=== PATIENT | male | born 1950 | race Caucasian/White ===

== ENCOUNTER 2018-02-21 08:53 | Inpatient (IN) | payer OTHER ==
[~2018-02-21] VITALS: Ht 177.8 cm; Wt 95.0 kg
[~2018-02-21 08:53] MED LIST: ASPI325T4 PO; FLUT0.05 NAS; HYDR-392 PO; NITR0.4S29 SL; RANI150C11 PO; TIZA4CAP PO
[2018-02-21] MEDS ORDERED: ANGIOMAX 250 MG VIAL IV ONE (10:11)
[2018-02-21] MEDS ORDERED: VERAPAMIL 2.5MG/ML INJ 2ML VIAL IV ONE (10:11)
[2018-02-21] MEDS ORDERED: methylPREDNISolone SOD SUCC 125 MG/2 ML VL ONE (10:11)
[2018-02-21] MEDS ORDERED: diphenhdrAMINE HCL 50 MG/1 ML VL ONE (10:11)
[2018-02-21] MEDS ORDERED: fentaNYL CITRATE 100 MCG/2 ML VL ONE (10:12)
[2018-02-21] MEDS ORDERED: SODIUM CHL 0.9% 50 ML ONE (10:12)
[2018-02-21] MEDS ORDERED: MIDAZOLAM HCL 1MG/1ML-2 ML VIAL ONE (10:12)
[2018-02-21] MEDS ORDERED: IODIXANOL 320MG/ML 100ML BTL IV ONE (10:19)
[2018-02-21] MEDS ORDERED: LIDOCAINE 2% (LOCAL ANESTH.) PF 5ml SDV ONE (10:19)
[2018-02-21] MEDS ORDERED: ATROPINE SULF 1 MG/10ml SYR ONE (10:47)
[2018-02-21] MEDS ORDERED: EPINEPHrine HCL 1 MG/10 ML SYRG ONE (10:47)
[2018-02-21] MEDS ORDERED: LIDOCAINE 2%HCL (LOCAL ANESTH.) INJ 10ml MDV ONE (10:52)
[2018-02-21] MEDS ORDERED: ASPirin 325 MG TAB ONE (11:06)
[2018-02-21] MEDS ORDERED: TICAGRELOR 90 MG TAB ONE (11:06)
[2018-02-21] MEDS ORDERED: ACETAMINOPHEN 500 MG TAB PO PRN (12:30)
[2018-02-21] MEDS ORDERED: MORPHINE SULF INJ 2 MG/ML SYRINGE 1ML IV PRN (12:30)
[2018-02-21] MEDS ORDERED: ONDANSETRON HCL 4 MG/2 ML VIAL IV PRN (12:30)
[2018-02-21] MEDS ORDERED: NITROGLYCERIN 0.4 MG SL TAB SL PRN (12:30)
[2018-02-21] MEDS: FLUTICASONE PROP NASAL SPR 0.05 % (50MCG) 16GM EACHNOSTRI SCH (12:45)
[2018-02-21] MEDS ORDERED: HYDROcodone-ACET 7.5/325MG TAB PO PRN (12:45)
[2018-02-21] MEDS: SODIUM CHLOR 0.9% PF (SALINE LOCK) 10ML VIAL/SYR IV SCH ×2 (14:00→22:00)
[2018-02-21 16:24] VITALS: BP 150/83
[2018-02-21 16:44] VITALS: BP 150/83
[2018-02-21] MEDS: SODIUM CHLORIDE 0.9% 1,000 ML IV SCH (18:00)
[2018-02-21 21:56] VITALS: BP 109/64
[2018-02-21] MEDS ORDERED: CLOPIDOGREL 300 MG TAB PO ONE (22:00)
[2018-02-21] MEDS: FAMOTIDINE 20 MG TAB PO SCH (22:35)
[2018-02-22] MEDS: SODIUM CHLORIDE 0.9% 1,000 ML IV SCH ×2 (04:00→14:00)
[2018-02-22 04:43] VITALS: BP 124/67
[2018-02-22] MEDS: SODIUM CHLOR 0.9% PF (SALINE LOCK) 10ML VIAL/SYR IV SCH ×2 (06:00→15:16)
[2018-02-22 07:53] VITALS: BP 127/65
[2018-02-22] MEDS: FLUTICASONE PROP NASAL SPR 0.05 % (50MCG) 16GM EACHNOSTRI SCH (09:53)
[2018-02-22] MEDS ORDERED: ASPirin 325 MG TAB PO SCH (10:00)
[2018-02-22] MEDS: FAMOTIDINE 20 MG TAB PO SCH (10:00)
[2018-02-22] MEDS ORDERED: ASPirin 81 mg TAB PO SCH (10:00)
[2018-02-22] MEDS ORDERED: CLOPIDOGREL BISULFATE 75 MG TAB PO SCH (10:00)
[2018-02-22] MEDS ORDERED: ATOR20TA50 PO (10:27)
[2018-02-22] MEDS ORDERED: CLOP75TA28 PO (10:27)
[2018-02-22 12:44] VITALS: BP 131/62
== END 2018-02-22 15:01 | disposition home or self-care (01) | DRG 247 ==
LOC: EDSEX → CATH 08:53 → TELE-EAST 08:54
PROVIDERS: ADMIT Internal Medicine; ATTEND Internal Medicine
PROC: 027035Z Dilation of Coronary Artery, One Artery with Two Drug-eluting Intraluminal Devices, Percutaneous Approach (ICD-10-PCS; principal; 2018-02-21)
PROC: 02C03ZZ Extirpation of Matter from Coronary Artery, One Artery, Percutaneous Approach (ICD-10-PCS; 2018-02-21)
PROC: 4A023N7 Measurement of Cardiac Sampling and Pressure, Left Heart, Percutaneous Approach (ICD-10-PCS; 2018-02-21)
PROC: B2111ZZ Fluoroscopy of Multiple Coronary Arteries using Low Osmolar Contrast (ICD-10-PCS; 2018-02-21)
DX: I25.10 Atherosclerotic heart disease of native coronary artery without angina pectoris (principal); Z91.030 Bee allergy status; Z91.041 Radiographic dye allergy status; Z82.49 Family history of ischemic heart disease and other diseases of the circulatory system; K21.9 Gastro-esophageal reflux disease without esophagitis; F17.200 Nicotine dependence, unspecified, uncomplicated
CPT/HCPCS: 92924; 93005; 93458; 99152; A6257; C1751; C1874; J2001; J2250; Q9967

== ENCOUNTER 2021-01-04 07:28 | Day surgery (SDC) | payer OTHER ==
[~2021-01-04] VITALS: Ht 177.8 cm; Wt 90.7 kg
[~2021-01-04 07:28] MED LIST changes: +ASPI1TAB19 PO; -ASPI325T4 PO; +ATOR20TA PO; +CLOP75TA28 PO; -FLUT0.05 NAS; +FLUT50SP28
[2021-01-04] MEDS ORDERED: IODIXANOL 320MG/ML 100ML BTL IV ONE ×2 (08:37→09:47)
[2021-01-04] MEDS ORDERED: LIDOCAINE 2%HCL (LOCAL ANESTH.) INJ 20ML MDV ONE ×2 (08:38→09:46)
[2021-01-04] MEDS ORDERED: ANGIOMAX 250 MG VIAL IV ONE (09:54)
[2021-01-04] MEDS ORDERED: MIDAZOLAM HCL 1MG/1ML-2 ML VIAL ONE (09:55)
[2021-01-04] MEDS ORDERED: SODIUM CHL 0.9% 50 ML ONE (09:55)
[2021-01-04] MEDS ORDERED: HEPARIN SODIUM (PORCINE) 5000 UNITS/ML 1ML VIAL ONE (09:55)
[2021-01-04] MEDS ORDERED: fentaNYL CITRATE 100 MCG/2 ML VL ONE (09:55)
[2021-01-04] MEDS ORDERED: VERAPAMIL 2.5MG/ML INJ 2ML VIAL IV ONE (09:55)
[2021-01-04] MEDS ORDERED: methylPREDNISolone SOD SUCC 125 MG/2 ML VL ONE (10:01)
[2021-01-04] MEDS ORDERED: diphenhdrAMINE HCL 50 MG/1 ML VL ONE (10:01)
[2021-01-04] MEDS ORDERED: FAMOTIDINE (10MG/ML) 2ML VL IV ONE (10:01)
[2021-01-04] MEDS ORDERED: CLOPIDOGREL 300 MG TAB ONE (10:31)
[2021-01-04] MEDS ORDERED: ACETAMINOPHEN 500 MG TAB PO PRN (10:45)
[2021-01-04] MEDS ORDERED: ONDANSETRON HCL 4 MG/2 ML VIAL IV PRN (10:45)
[2021-01-04] MEDS ORDERED: HYDROcodone-ACET 5/325MG TAB PO PRN (10:45)
== END 2021-01-04 15:10 | disposition home or self-care (01) ==
LOC: CATH 07:28
PROVIDERS: ATTEND Internal Medicine
DX: R94.39 Abnormal result of other cardiovascular function study (principal); I25.118 Atherosclerotic heart disease of native coronary artery with other forms of angina pectoris; Z20.822 Contact with and (suspected) exposure to COVID-19; Z91.041 Radiographic dye allergy status; Z98.890 Other specified postprocedural states; Z79.899 Other long term (current) drug therapy
CPT/HCPCS: 93005; 93454; C1769; C1874; C1887; C1894; C9600; J0583; J1200; J1644; J2250; J2930; J3010; J3490; Q9967; U0003; 99152; 99153

== ENCOUNTER 2023-01-21 00:13 | Emergency (ER) | payer OTHER ==
[~2023-01-21] VITALS: Ht 177.8 cm; Wt 97.5 kg
[2023-01-21 01:20] VITALS: BP 153/62
[2023-01-21 02:15] LABS: Albumin 4.2 g/dL (3.4-5.0); Basophils # (auto) 0.1 10 ^3/uL (0-0.2); Basophils % (auto) 0.7 % (0.0-2.0); Calcium 9.7 mg/dL (8.5-10.1); Eosinophils # (auto) 0.1 10 ^3/uL (0-0.8); Eosinophils % (auto) 1.3 % (0.0-7.0); Hematocrit 44.8 % (41.0-53.0); Hemoglobin 15.3 g/dL (13.5-17.5); Lymphocytes # (auto) 1.3 10 ^3/uL (0.4-5.4); Lymphocytes % (auto) 13.2 % (10.0-50.0); Mean Corpuscular Hgb Conc. 34.1 g/dL (32.0-36.0); Mean Corpuscular Volume 85.2 fL (80.0-100.0); Monocytes # (auto) 0.7 10 ^3/uL (0-1.3); Monocytes % (auto) 7.1 % (0.0-12.0); Neutrophils # (auto) 7.9 10 ^3/uL (1.6-8.6); Neutrophils % (auto) 77.7 % (37.0-80.0); Potassium 4.4 mmol/L (3.5-5.1); Red Blood Cells 5.26 10^6/uL (4.5-5.90); Red Cell Distribution Width 13.7 % (11.8-14.3); White Blood Cell 10.2 10^3/uL (4.4-10.8)
[2023-01-21 02:17] LABS: BUN/Creatinine Ratio 16.1 (10.0-20.0)
[2023-01-21 02:19] LABS: Bilirubin, Total 0.6 mg/dL (0.2-1.0); Total Protein 7.3 g/dL (6.4-8.2)
[2023-01-21 02:20] LABS: Urine Bacteria FEW /hpf (None Seen); Urine Blood 3+ /uL (Negative); Urine Mucus FEW (None Seen); Urine WBC 4 /hpf (0 - 3)
== END 2023-01-21 03:00 | disposition left against medical advice (07) ==
LOC: ER 00:13
DX: R10.9 Unspecified abdominal pain (principal); Z53.21 Procedure and treatment not carried out due to patient leaving prior to being seen by health care provider
CPT/HCPCS: 36415; 80053; 81001; 85025

== ENCOUNTER 2024-09-16 06:48 | Inpatient (IN) | payer OTHER ==
[~2024-09-16] VITALS: Ht 175.3 cm; Wt 88.6 kg
[~2024-09-16 06:48] MED LIST changes: +ACETAMINOPHEN 325 MG TAB PO ONE
--- NOTE | 2024-09-16 06:57 | ED.PDOC ---
History of Present Illness HPI Comments 74-year-old male brought in by EMS presents with a chief complaint of syncope and headache. Patient reports that he bent down to place cat food on the floor, stood up, got dizzy, then woke up on the floor. Patient mentions that he has felt dizzy like this in the past, but has never fainted before. Patient is now complaining of a headache to the occipital portion of his head. Patient is alert and oriented x 4 at this time. Patient is on Plavix and ASA. No other symptoms or modifying factors present at this time. Time Seen by MD: 06:51 Reviewed Notes: Medications, Allergies Allergies: Coded Allergies: Iodine (Verified Allergy, Intermediate, HIVES, 01/01/21) Home Meds Reported Medications Clopidogrel Bisulfate (Plavix) 75 Mg Tab, 1 TAB PO QAM for CAD 01/01/21 Atorvastatin Calcium (Lipitor) 20 Mg Tab, 1 TAB PO QPM for HIGH CHOLESTEROL 01/01/21 Fluticasone Propionate (Nasal) (Allergy Relief) 50 Mcg/Act Spr, 1 SPRAY NA DAILY PRN for ALLERGIES 01/01/21 Aspirin (Aspirin) 81 Mg Tab, 1 TAB PO QAM for CAD 01/01/21 Tizanidine Hydrochloride (Zanaflex) 4 Mg Cap, 1 CAP PO DAILY PRN for FOR MUSCLE SPASM 01/17/18 Hydrocodone-Acetaminophen ([place] 7.5-325 mg) 1 Tab Tab, 1 TAB PO BID PRN for PAIN SCALE 7 THRU 10 01/17/18 Nitroglycerin (NTROSTAT SUBLINGUAL) 0.4 Mg Sl, 1 TAB SL PRN PRN for FOR CHEST PAIN *MAY REPEAT EVERY 5 MINUTES X 3 TOTAL IF NO RELIEF, INITIATE ANALGESIC THERAPY. NOTIFY PHYSICIAN *Do not crush. 01/17/18 Ranitidine Hcl (Ranitidine Hcl) 150 Mg Cap, 1 CAP PO BID PRN for GERD 01/17/18 Information Source: Patient Mode of Arrival: EMS Severity: Moderate Timing: Minutes Duration: Since onset Prehospital treatment: None Past Medical History PAST MEDICAL HISTORY: CAD Surgical History: PTCA Family History Family History: Reviewed,noncontributory to illness Social History Smoker: Non-Smoker Alcohol: Denies ETOH Use Drugs: Denies Drug Use Lives In: Home Constitutional: denies: chills, diaphoresis, fatigue, fever, malaise, sweats, weakness, others EENTM: denies: blurred vision, double vision, ear bleeding, ear discharge, ear drainage, ear pain, ear ringing, eye pain, eye redness, hearing loss, mouth pain, mouth swelling, nasal discharge, nose bleeding, nose congestion, nose pain, photophobia, tearing, throat pain, throat swelling, voice changes, others Respiratory: denies: cough, hemoptysis, orthopnea, SOB at rest, shortness of breath, SOB with excertion, stridor, wheezing, others Cardiovascular: reports: syncope; denies: chest pain, dizzy spells, diaphoresis, Dyspnea on exertion, edema, irregular heart beat, left arm pain, lightheadedness, palpitations, PND, others Gastrointestinal: denies: abdomen distended, abdominal pain, blood streaked bowels, constipated, diarrhea, dysphagia, difficulty swallowing, hematemesis, melena, nausea, poor appetite, poor fluid intake, rectal bleeding, rectal pain, vomiting, others Genitourinary: denies: burning, dysuria, flank pain, frequency, hematuria, incontinence, penile discharge, penile sore, pain, testicle pain, testicle swelling, urgency, others Neurological: reports: headache; denies: dizziness, fainting, left sided numbness, left sided weakness, numbness, paresthesia, pre-existing deficit, right sided numbness, right sided weakness, seizure, speech problems, tingling, tremors, weakness, others Musculoskeletal: denies: back pain, gout, joint pain, joint swelling, muscle pain, muscle stiffness, neck pain, others Integumetry: denies: bruises, change in color, change in hair/nails, dryness, laceration, lesions, lumps, rash, wounds, others Allergic/Immunocompromised: denies: Difficulty Healing, Frequent Infections, Hives, Itching, others Hematologic/Lymphatic: denies: anemia, blood clots, easy bleeding, easy bruising, swollen glands, others Endocrine: denies: excessive hunger, excessive sweating, excessive thirst, excessive urination, flushing, intolerance to cold, intolerance to heat, unexplained weight gain, unexplained weight loss, others Psychiatric: denies: anxiety, bipolar disorder, depression, hopeless, panic disorder, schizophrenia, sleepless, suicidal, others All Other Systems: Reviewed and Negative Physical Exam General Appearance: No Apparent Distress, Normal HEENT: NOT DONE Neck: NOT DONE Respiratory: Chest Non-Tender, Lungs Clear, No Accessory Muscle Use, No Respiratory Distress, Normal Breath Sounds Cardiovascular: No Edema, No JVD, No Murmur, No Gallop, Normal Peripheral Pulses, Regular Rate/Rhythm Breast Exam: Deferred Gastrointestinal: No Organomegaly, Non Tender, No Pulsatile Mass, Normal Bowel Sounds, Soft Genitalia: Deferred Pelvic: Deferred Rectal: Deferred Extremities: No calf tenderness, Normal capillary refill, Normal inspection, Normal range of motion, Non-tender, No pedal edema Neurologic: Alert, No Motor Deficits, Normal Affect, Normal Mood, No Sensory Deficits Cerebellar Function: NOT DONE Reflexes: NOT DONE Skin: Dry, Normal Color, Warm Lymphatic: NOT DONE Was a procedure done? Was a procedure done?: No Differential Dx Considerations may include: ACS, cardiac arrhythmia, viral syndrome, electrolyte abnormality, infectious etiology X-Ray, Labs, Meds, VS Vital Signs Date Time Temp Pulse Resp B/P (MAP) Pulse Ox O2 Delivery O2 Flow Rate FiO2 09/16/24 09:55 51 17 132/70 (90) 96 09/16/24 07:16 97.6 51 17 128/67 (87) 96 97.6 09/16/24 07:16 51 17 96 Room Air* 0 21 09/16/24 06:50 97.8 52 16 141/79 (99) 96 09/16/24 06:48 51 Lab Test 09/16/24 08:06 09/16/24 07:21 09/16/24 07:07 09/16/24 07:04 Range/Units Troponin I High Sensitivity 18 8 </=54 ng/L POC Glucose 111 H 125 H 70-106 mg/dl White Blood Count 6.1 4.4-10.8 10^3/uL Red Blood Count 5.30 4.5-5.90 10^6/uL Hemoglobin 15.2 13.5-17.5 g/dL Hematocrit 45.4 41.0-53.0 % Mean Corpuscular Volume 85.7 80.0-100.0 fL Mean Corpuscular Hemoglobin 28.7 28.0-32.0 pg Mean Corpuscular Hemoglobin Concent 33.4 32.0-36.0 g/dL Red Cell Distribution Width 14.1 11.8-14.3 % Platelet Count 162 140-450 10^3/uL Mean Platelet Volume 7.3 6.9-10.8 fL Neutrophils (%) (Auto) 67.3 37.0-80.0 % Lymphocytes (%) (Auto) 22.0 10.0-50.0 % Monocytes (%) (Auto) 7.2 0.0-12.0 % Eosinophils (%) (Auto) 2.3 0.0-7.0 % Basophils (%) (Auto) 1.2 0.0-2.0 % Neutrophils # (Auto) 4.1 1.6-8.6 10 ^3/uL Lymphocytes # (Auto) 1.3 0.4-5.4 10 ^3/uL Monocytes # (Auto) 0.4 0-1.3 10 ^3/uL Eosinophils # (Auto) 0.1 0-0.8 10 ^3/uL Basophils # (Auto) 0.1 0-0.2 10 ^3/uL Nucleated Red Blood Cells 0.1 % Sodium Level 138 136-145 mmol/L Potassium Level 4.3 3.5-5.1 mmol/L Chloride Level 106 98-107 mmol/L Carbon Dioxide Level 21 20-31 mmol/L Anion Gap 11 5-15 Blood Urea Nitrogen 16 9-23 mg/dL Creatinine 1.20 0.700-1.30 mg/dL Glomerular Filtration Rate Calc 64 >90 mL/min BUN/Creatinine Ratio 13.3 10.0-20.0 Serum Glucose 123 H 74-106 mg/dL Calcium Level 10.1 8.7-10.4 mg/dL B-Type Natriuretic Peptide 56.54 0-100 pg/mL Test 09/16/24 06:53 Range/Units Urine Color Light-yellow Yellow Urine Clarity Clear Clear Urine pH 5.0 5.0-9.0 Urine Specific [place] 1.019 1.001-1.035 Urine Protein Negative Negative Urine Ketones Negative Negative Urine Blood Negative Negative /uL Urine Nitrite Negative Negative Urine Bilirubin Negative Negative Urine Urobilinogen Normal Negative mg/dL Urine Leukocyte Esterase Negative Negative /uL Urine RBC 1 0 - 3 /hpf Urine Microscopic WBC 1 0-3 /HPF Urine Squamous Epithelial Cells None seen <5 /hpf Urine Bacteria None seen None Seen /hpf Urine Glucose Normal Normal mg/dL Current Medications Medications (Trade) Dose Ordered Sig/Fidelia Route Start Time Stop Time Status Last Admin Acetaminophen (Tylenol Tablet) 650 mg ONCE ONCE PO 09/16/24 07:30 09/16/24 07:31 DC 09/16/24 07:35 Time of 1ST Reevaluation: 07:21 Reevaluation 1ST: Unchanged Patient Education/Counseling: Diagnosis, Treatment, Prognosis Family Education/Counseling: No Family Present Departure 1 Departure Time of Disposition: 10:12 (Patient presented with syncope today and should be admitted. Data: 1. I ordered and reviewed the result of at least 3 labs including a CBC, BMP, and troponin. 2. I independently interpreted the following tests: EKG which shows a sinus bradycardia and a chest x-ray which shows pulmonary vascular congestion and a CT head which shows benign brain.Risk:This patient has a high risk of morbidity due to further diagnostic testing or treatment and may suffer from an acute cardiac, neurologic, or infectious disorder. Rationale: Patient should be admitted to the hospital for further management.) Impression: Primary Impression: Syncope and collapse Additional Impression: Symptomatic bradycardia Disposition: 09 ADMITTED INPATIENT Admit to: Med Surg Condition: Serious Critical Care Note Critical Care Time?: No Stability Stability form required: No I personally scribed for JACKLYN GAMBINO MD ([email or web address]) on 09/16/24 at 06:57. Electronically submitted by Quan Aguayo ([email or web address]). JACKLYN GAMBINO MD Sep 16, 2024 06:57
[2024-09-16 07:16] VITALS: PULSE 51; RESP 17; O2SAT 96
[2024-09-16] MEDS: ACETAMINOPHEN 325 MG TAB PO ONE (07:35)
[2024-09-16 07:36] LABS: Basophils # (auto) 0.1 10 ^3/uL (0-0.2); Basophils % (auto) 1.2 % (0.0-2.0); Eosinophils # (auto) 0.1 10 ^3/uL (0-0.8); Eosinophils % (auto) 2.3 % (0.0-7.0); Hematocrit 45.4 % (41.0-53.0); Hemoglobin 15.2 g/dL (13.5-17.5); Lymphocytes # (auto) 1.3 10 ^3/uL (0.4-5.4); Mean Corpuscular Hemoglobin 28.7 pg (28.0-32.0); Mean Corpuscular Hgb Conc. 33.4 g/dL (32.0-36.0); Mean Corpuscular Volume 85.7 fL (80.0-100.0); Monocytes # (auto) 0.4 10 ^3/uL (0-1.3); Monocytes % (auto) 7.2 % (0.0-12.0); Neutrophils # (auto) 4.1 10 ^3/uL (1.6-8.6); Neutrophils % (auto) 67.3 % (37.0-80.0); Nucleated Red Blood Cells % 0.1 %; Platelet Count (auto) 162 10^3/uL (140-450); Red Cell Distribution Width 14.1 % (11.8-14.3); White Blood Cell 6.1 10^3/uL (4.4-10.8)
--- NOTE | 2024-09-16 07:43 | DVH ---
CHEST RADIOGRAPH Indication: Syncope Technique: Single frontal view of the chest was obtained Comparison: None FINDINGS: Lines and Tubes: None Lungs: There is a density overlying the left chest. Mild interstitial prominence. No focal consolidat ion. Pleura: No effusion. No pneumothorax. Cardiomediastinal contours: Unremarkable Bones: No acute osseous abnormality. IMPRESSION: 1. Density overlying the left chest presumably external to the patient. 2. Mild interstitial prominence compatible with pulmonary congestion.
--- NOTE | 2024-09-16 07:49 | DVH ---
CLINICAL INFORMATION: 74 years old, Male; syncope. TECHNIQUE: Axial imaging was obtained through the brain without contrast. Coronal and sagittal reform atted images were obtained, reviewed, and stored. Images were reviewed in brain and bone windows. Al l CT scans at this medical facility are performed using dose modulation techniques as appropriate to a performed exam including the following: Automated exposure control was utilized; adjustment of the MA and/or KV according to patient size; and use of iterative reconstruction technique. CTDIvol = 57.6 3 mGy DLP = 1135.76 mGy-cm COMPARISON: None FINDINGS: There is no acute intracranial hemorrhage. No mass effect or midline shift. Scattered areas of hypoattenuation are seen in the periventricular and subcortical white matter, which are nonspecif ic but most likely sequelae of small vessel ischemic disease. The ventricles and sulci are within nor mal limits in size for age. Basal cisterns are patent. The calvarium is unremarkable. Paranasal sinu ses and mastoid air cells are clear. IMPRESSION: No CT evidence of acute intracranial abnormality.
[2024-09-16 08:28] LABS: Chloride 106 mmol/L (98-107); Potassium 4.3 mmol/L (3.5-5.1); Sodium 138 mmol/L (136-145)
[2024-09-16 08:29] LABS: Anion Gap 11 (5-15); Carbon Dioxide 21 mmol/L (20-31)
[2024-09-16 08:30] LABS: Calcium 10.1 mg/dL (8.7-10.4)
[2024-09-16 08:35] LABS: BUN/Creatinine Ratio 13.3 (10.0-20.0); Blood Urea Nitrogen 16 mg/dL (9-23); Glucose 123 mg/dL (74-106)
[2024-09-16 08:42] LABS: Urine Bacteria None Seen /hpf (None Seen)
[2024-09-16 09:10] LABS: Urine Blood Negative /uL (Negative); Urine Clarity Clear (Clear); Urine Color Light-Yellow (Yellow); Urine Protein, UAD Negative (Negative); Urine Specific Gravity 1.019 (1.001-1.035); Urine Squamous Epithelial Cell None Seen /hpf (<5); Urine Urobilinogen Normal (Negative); Urine WBC 1 /HPF (0-3)
[2024-09-16] MEDS ORDERED: HYDROcodone-ACET 5/325MG TAB PO PRN (11:15)
[2024-09-16] MEDS ORDERED: NITROGLYCERIN 0.4 MG SL TAB SL PRN (11:15)
[2024-09-16] MEDS ORDERED: MORPHINE SULFATE INJ 2 MG/ml SYRG IV PRN (11:15)
[2024-09-16] MEDS ORDERED: ONDANSETRON HCL 4 MG/2 ML VIAL IV PRN (11:15)
[2024-09-16] MEDS ORDERED: CYCLOBENZAPRINE HCL 10 MG TAB PO PRN (11:15)
[2024-09-16] MEDS ORDERED: FLUTICASONE PROP NASAL SPR 0.05 % (50MCG) 16GM PRN (11:15)
--- NOTE | 2024-09-16 12:24 | DVH ---
PROCEDURE: MRI BRAIN HEAD WO CONTRAST INDICATION: syncope EXAM DATE: 09/16/2024 11:51 AM COMPARISON: None TECHNIQUE: MRI of the brain without intravenous contrast. FINDINGS: Diffusion weighted images of the brain demonstrate no evidence of acute infarction. There is no evidence of acute intracranial hemorrhage, extra-axial collection, mass effect, midline s hift, herniation or hydrocephalus. The ventricles, sulci and cisterns appear age appropriate. Few punctate T2 bright foci in the deep white matter. There are no signal abnormalities on the susceptibility weighted sequences. The major vascular flow voids are present. The visualized paranasal sinuses and mastoid air cells are clear. The surrounding soft tissues and o sseous structures are unremarkable. IMPRESSION: 1. No evidence of acute infarction, intracranial hemorrhage, mass effect or hydrocephalus. Few puncta te T2 bright foci in the deep white matter are nonspecific but likely related to chronic microvascula r ischemic disease. HS:Y
[2024-09-16 12:40] VITALS: PULSE 54; RESP 18; O2SAT 96
--- NOTE | 2024-09-16 12:47 | DVHHP2 ---
History of Present Illness Reason for Visit: Dizziness with syncopal episode History of Present Illness 74-year-old male brought in by EMS presents with a chief complaint of syncope and headache. Patient reports that he bent down to place cat food on the floor, stood up, got dizzy, then woke up on the floor. Patient mentions that he has felt dizzy like this in the past, but has never fainted before. Patient is now complaining of a headache to the occipital portion of his head. Patient is alert and oriented x 4 at this time. Patient is on Plavix and ASA. No other symptoms or modifying factors present at this time. Patient noted to be bradycardic heart rate in the 50s. Patient apparently had a similar episode few years back. Patient apparently had a coronary artery disease with stent placement four years ago. He is taking dual antiplatelet therapy. Otherwise he denies any chest pain shortness for breath. No fevers chills or sweats. No recent travel. Other review of systems reviewed normal. Past Medical History Coronary artery disease Past Surgical History Alert coronary artery stent placement in 2020 Family History: Hyperlipidemia, Hypertension Smoke: No ALCOHOL: rare Lives: with Family Review of Systems Review of Systems Denies any vertigo. Other review of systems reviewed normal besides mentioned in HPI. Allergies: Coded Allergies: Iodine (Verified Allergy, Intermediate, HIVES, 01/01/21) Medications Current Medications Medications Dose Ordered Sig/Fidelia Route Start Time Stop Time Status Last Admin Dose Admin Aspirin 81 mg QAM PO 09/17/24 07:00 UNV Atorvastatin Calcium 20 mg QPM PO 09/16/24 18:00 UNV Clopidogrel Bisulfate 75 mg QAM PO 09/17/24 07:00 UNV Fluticasone Propionate 1 mcg DAILY PRN NA 09/16/24 11:15 UNV Nitroglycerin 0.4 mg Q5MINP PRN SL 09/16/24 11:15 UNV Morphine Sulfate 2 mg Q30M PRN IV 09/16/24 11:15 UNV Acetaminophen/ Hydrocodone Bitart 1 tab Q4HPRN PRN PO 09/16/24 11:15 UNV Ondansetron HCl 4 mg Q6HPRN PRN IV 09/16/24 11:15 UNV Famotidine 20 mg DAILY PO 09/17/24 10:00 UNV Cyclobenzaprine HCl 5 mg Q8HPRN PRN PO 09/16/24 11:15 UNV Exam Vital Signs Vital Signs Date Time Temp Pulse Resp B/P (MAP) Pulse Ox O2 Delivery O2 Flow Rate FiO2 09/16/24 11:42 51 17 124/58 (80) 98 09/16/24 07:16 97.6 97.6 09/16/24 07:16 Room Air* 0 21 Exam Elderly gentleman comfortable in wheelchair sitting without acute distress. HEENT pupils equal round react to light. Neck supple. Normocephalic atraumatic head. Unable to palpate any thyromegaly. Heart sinus bradycardia S1 plus S2 wi thout any murmurs or gallops. Lungs fair air movement chest tube will expansion no rales wheezes. Abdomen is obese soft nontender positive bowel sounds. Extremities no edema positive distal pedal pulses. Neurologic no focal neurological deficits. Labs/Xrays Labs Test 09/16/24 10:10 09/16/24 07:21 09/16/24 07:04 09/16/24 06:53 Range/Units Troponin I High Sensitivity 42 </=54 ng/L POC Glucose 111 H 70-106 mg/dl White Blood Count 6.1 4.4-10.8 10^3/uL Red Blood Count 5.30 4.5-5.90 10^6/uL Hemoglobin 15.2 13.5-17.5 g/dL Hematocrit 45.4 41.0-53.0 % Mean Corpuscular Volume 85.7 80.0-100.0 fL Mean Corpuscular Hemoglobin 28.7 28.0-32.0 pg Mean Corpuscular Hemoglobin Concent 33.4 32.0-36.0 g/dL Red Cell Distribution Width 14.1 11.8-14.3 % Platelet Count 162 140-450 10^3/uL Mean Platelet Volume 7.3 6.9-10.8 fL Neutrophils (%) (Auto) 67.3 37.0-80.0 % Lymphocytes (%) (Auto) 22.0 10.0-50.0 % Monocytes (%) (Auto) 7.2 0.0-12.0 % Eosinophils (%) (Auto) 2.3 0.0-7.0 % Basophils (%) (Auto) 1.2 0.0-2.0 % Neutrophils # (Auto) 4.1 1.6-8.6 10 ^3/uL Lymphocytes # (Auto) 1.3 0.4-5.4 10 ^3/uL Monocytes # (Auto) 0.4 0-1.3 10 ^3/uL Eosinophils # (Auto) 0.1 0-0.8 10 ^3/uL Basophils # (Auto) 0.1 0-0.2 10 ^3/uL Nucleated Red Blood Cells 0.1 % Sodium Level 138 136-145 mmol/L Potassium Level 4.3 3.5-5.1 mmol/L Chloride Level 106 98-107 mmol/L Carbon Dioxide Level 21 20-31 mmol/L Anion Gap 11 5-15 Blood Urea Nitrogen 16 9-23 mg/dL Creatinine 1.20 0.700-1.30 mg/dL Glomerular Filtration Rate Calc 64 >90 mL/min BUN/Creatinine Ratio 13.3 10.0-20.0 Serum Glucose 123 H 74-106 mg/dL Calcium Level 10.1 8.7-10.4 mg/dL B-Type Natriuretic Peptide 56.54 0-100 pg/mL Urine Color Light-yellow Yellow Urine Clarity Clear Clear Urine pH 5.0 5.0-9.0 Urine Specific [place] 1.019 1.001-1.035 Urine Protein Negative Negative Urine Ketones Negative Negative Urine Blood Negative Negative /uL Urine Nitrite Negative Negative Urine Bilirubin Negative Negative Urine Urobilinogen Normal Negative mg/dL Urine Leukocyte Esterase Negative Negative /uL Urine RBC 1 0 - 3 /hpf Urine Microscopic WBC 1 0-3 /HPF Urine Squamous Epithelial Cells None seen <5 /hpf Urine Bacteria None seen None Seen /hpf Urine Glucose Normal Normal mg/dL Assessment/Plan Assessment/Plan History consistent with possible orthostatic hypotension. We will bring him to the hospital to rule out other neuro cardiogenic causes. Telemetry evaluation. 2D echocardiogram. Dr. Bruno his cardiology consultation. Serial troponins. Orthostatic blood pressures. MRI of the brain to rule out any TIA/stroke. Continue his home medications. Supportive care and treatment. Otherwise further clinical management per clinical course and pending evaluations studies. Discussed with the patient regarding his care plan. Plan discussed with: Patient My Orders Orders - JARAD FRIEDMAN MD Procedure Category Date Status Time Aspirin Enteric PHA 09/17/24 Logged Coated Tablet 07:00 Atorvastatin (Lipitor) PHA 09/16/24 Logged 18:00 Clopidogrel Bisulfate PHA 09/17/24 Logged (Plavix) 07:00 Fluticasone Nasal PHA 09/16/24 Logged [place] (Flonase R[place]) 11:15 Admit ADMIT 09/16/24 Transmitted 11:09 Nitroglycerin PHA 09/16/24 Logged Sublingual (Ntrostat 11:15 Morphine Sulfate PHA 09/16/24 Logged Injection 11:15 Stat Ekg For Chest SAYDA 09/16/24 In Process Pain 11:09 Notify Of Changes SAYDA 09/16/24 In Process From Base 11:09 Stock Receiver For [facility] 09/16/24 In Process 24 Hours 11:09 Emergency Dysrhythmia [facility] 09/16/24 In Process Protocol 11:09 Rhythm Strips Once [facility] 09/16/24 In Process Every Shift 11:09 Oxygen By Nasal RT 09/16/24 Transmitted Cannula 11:09 Echo 2d Mode Cardiac US 09/16/24 Logged DOP 11:09 Cardiac DIET 09/16/24 Transmitted Diet-2gna,Lofat,Lochol Lunch Orthostatic Vital ORDERS 09/16/24 Transmitted Signs 11:09 Orthostatic Vital ORDERS 09/16/24 Transmitted Signs 17:09 Orthostatic Vital ORDERS 09/16/24 Transmitted Signs 23:09 Thyroid Stimulating LAB 09/16/24 In Process Hormone 11:09 Free T4 (Free LAB 09/16/24 In Process Thyroxine) 11:09 Troponin-I Hs LAB 09/16/24 Logged 14:09 Hydrocodone-Acet PHA 09/16/24 Logged 5/325mg Tab ([place] 11:15 Ondansetron Hcl PHA 09/16/24 Logged (Zofran) 11:15 Famotidine Tablet PHA 09/17/24 Logged (Pepcid Tablet) 10:00 Cyclobenzaprine PHA 09/16/24 Logged Tablet (Flexeril 11:15 Brain Head Wo Contrast MRI 09/16/24 Resulted 11:09 * Cardiology Consult CONS 09/16/24 Transmitted 12:24 Problem List: (1) Syncope and collapse (2) Symptomatic bradycardia JARAD FRIEDMAN MD Sep 16, 2024 12:47
[2024-09-16 12:50] VITALS: BP 114/54; PULSE 54; RESP 18; TEMP 98.2; O2SAT 97
--- NOTE | 2024-09-16 15:39 | DVHINCON2 ---
DATE OF CONSULTATION: 09/16/2024 REFERRING PHYSICIAN: Dr. Catalino Cox. CONSULTING PHYSICIAN: Dr. Jacob. INDICATION: Loss of consciousness. HISTORY OF PRESENT ILLNESS: The patient is a 74-year-old male with history of CAD status post PCI, history of hypertension, presented to the hospital after he had an episode of brief loss of consciousness. The patient stated that he bent down and stood up, felt dizzy, fell to the floor at his house which was witnessed by his . Per his , the patient had shaky movement of his body for a few minutes. The patient stated that he had urinary incontinence during the episode. He is currently asymptomatic. Denies any chest pain, any shortness of breath. PAST MEDICAL HISTORY: * History of CAD, status post angioplasty. * Hypertension. MEDICATIONS: Per med rec. ALLERGIES: IODINE. PHYSICAL EXAMINATION: GENERAL: Alert and awake, in no form of cardiopulmonary distress. VITAL SIGNS: Blood pressure 124/58, pulse 61 per minute, saturation 96%. HEENT: No carotid bruits. No jugular venous distention. CHEST: Bilateral air entry. CARDIOVASCULAR: Precordial and carotid pulses palpable. Normal S1, S2. Bradycardic. EXTREMITIES: No peripheral edema. DIAGNOSTIC DATA: CBC is normal. Sodium 138, potassium 4.3, creatinine is 1.2. Troponins negative x2. BNP is normal. ASSESSMENT: * Syncope, unclear etiology. * Given history of urinary incontinence and possible convulsion, need to rule out seizure. * History of coronary artery disease, status post angioplasty. * Bradycardia of unclear significance. RECOMMENDATIONS: * Avoid zoe blocking agents for now. * Monitor heart rate closely. * Continue telemetry. * Needs neuro evaluation given urinary incontinence and shaky movement during episode of loss of consciousness. * We will review echo once completed. Thank you for allowing me to participate in the care of this patient. MD IVANA Gonzalez/BRADLEY/YAMILETH TID: [id number] RECEIPT: [id number]
[2024-09-16 16:24] VITALS: BP 116/52; PULSE 53; RESP 16; TEMP 98; O2SAT 96
[2024-09-16 16:26] VITALS: BP 124/49; PULSE 56; RESP 16; TEMP 98; O2SAT 96
[2024-09-16 16:30] VITALS: BP 113/55; PULSE 58; RESP 16; TEMP 98.1; O2SAT 97
[2024-09-16] MEDS: ATORVASTATIN 20 MG TAB PO SCH (18:00)
[2024-09-17] MEDS ORDERED: ASPirin-EC 81 mg tab PO SCH (07:00)
[2024-09-17] MEDS ORDERED: CLOPIDOGREL BISULFATE 75 MG TAB PO SCH (07:00)
--- NOTE | 2024-09-17 08:26 | ECG ---
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
[2024-09-17] MEDS ORDERED: FAMOTIDINE 20 MG TAB PO SCH (10:00)
--- NOTE | 2024-09-17 10:17 | DVHDS2 ---
Discharge Summary Date of Admission Sep 16, 2024 at 11:09 Date of Discharge: Sep 16, 2024 Labs/Diagnostic Data: Laboratory Results Test 09/16/24 14:15 09/16/24 07:21 09/16/24 07:04 09/16/24 06:53 Troponin I High Sensitivity 42 ng/L (</=54) POC Glucose 111 mg/dl (70-106) White Blood Count 6.1 10^3/uL (4.4-10.8) Red Blood Count 5.30 10^6/uL (4.5-5.90) Hemoglobin 15.2 g/dL (13.5-17.5) Hematocrit 45.4 % (41.0-53.0) Mean Corpuscular Volume 85.7 fL (80.0-100.0) Mean Corpuscular Hemoglobin 28.7 pg (28.0-32.0) Mean Corpuscular Hemoglobin Concent 33.4 g/dL (32.0-36.0) Red Cell Distribution Width 14.1 % (11.8-14.3) Platelet Count 162 10^3/uL (140-450) Mean Platelet Volume 7.3 fL (6.9-10.8) Neutrophils (%) (Auto) 67.3 % (37.0-80.0) Lymphocytes (%) (Auto) 22.0 % (10.0-50.0) Monocytes (%) (Auto) 7.2 % (0.0-12.0) Eosinophils (%) (Auto) 2.3 % (0.0-7.0) Basophils (%) (Auto) 1.2 % (0.0-2.0) Neutrophils # (Auto) 4.1 10 ^3/uL (1.6-8.6) Lymphocytes # (Auto) 1.3 10 ^3/uL (0.4-5.4) Monocytes # (Auto) 0.4 10 ^3/uL (0-1.3) Eosinophils # (Auto) 0.1 10 ^3/uL (0-0.8) Basophils # (Auto) 0.1 10 ^3/uL (0-0.2) Nucleated Red Blood Cells 0.1 % Sodium Level 138 mmol/L (136-145) Potassium Level 4.3 mmol/L (3.5-5.1) Chloride Level 106 mmol/L (98-107) Carbon Dioxide Level 21 mmol/L (20-31) Anion Gap 11 (5-15) Blood Urea Nitrogen 16 mg/dL (9-23) Creatinine 1.20 mg/dL (0.700-1.30) Glomerular Filtration Rate Calc 64 mL/min (>90) BUN/Creatinine Ratio 13.3 (10.0-20.0) Serum Glucose 123 mg/dL (74-106) Calcium Level 10.1 mg/dL (8.7-10.4) B-Type Natriuretic Peptide 56.54 pg/mL (0-100) Thyroid Stimulating Hormone (TSH) 2.84 uIU/mL (0.55-4.78) Free Thyroxine (T4) Calculated 1.16 ng/dL (0.89-1.76) Urine Color Light-yellow (Yellow) Urine Clarity Clear (Clear) Urine pH 5.0 (5.0-9.0) Urine Specific [place] 1.019 (1.001-1.035) Urine Protein Negative (Negative) Urine Ketones Negative (Negative) Urine Blood Negative /uL (Negative) Urine Nitrite Negative (Negative) Urine Bilirubin Negative (Negative) Urine Urobilinogen Normal mg/dL (Negative) Urine Leukocyte Esterase Negative /uL (Negative) Urine RBC 1 /hpf (0 - 3) Urine Microscopic WBC 1 /HPF (0-3) Urine Squamous Epithelial Cells None seen /hpf (<5) Urine Bacteria None seen /hpf (None Seen) Urine Glucose Normal mg/dL (Normal) Other Laboratory Tests 09/16/24 07:04 Condition at Discharge: Guarded Discharge Disposition: AMA Discharge Statement: "Patient was advised to return to the ER or call 911 if any headaches, dizziness, shortness of breath, chest pain, abdominal pain, bleeding, fevers, or worsening of medical condition. Patient was counseled about treatment plan, medications, possible side effects, patientverbalized understanding. All questions were answered to the best of my ability. This discharge took greater then 30 minutes in planning, reviewing documentation, counseling the patient, and discussing with other team members." ASSESSMENT ASSESSMENT Assessment JARAD FRIEDMAN MD Sep 17, 2024 10:17
== END 2024-09-16 21:25 | disposition left against medical advice (07) | DRG 312 ==
LOC: ER 06:48 → EDBD 06:48 → OVERFLOW 11:09
PROVIDERS: ADMIT Hospitalist; ATTEND Hospitalist
DX: R55 Syncope and collapse (principal); R00.1 Bradycardia, unspecified; I25.10 Atherosclerotic heart disease of native coronary artery without angina pectoris; I10 Essential (primary) hypertension; Z95.5 Presence of coronary angioplasty implant and graft; Z79.02 Long term (current) use of antithrombotics/antiplatelets; Z79.82 Long term (current) use of aspirin; Z88.8 Allergy status to other drugs, medicaments and biological substances; Z82.49 Family history of ischemic heart disease and other diseases of the circulatory system; Z79.899 Other long term (current) drug therapy
CPT/HCPCS: 36415; 70450; 70551; 71045; 80048; 81001; 82962; 83880; 84439; 84443; 84484; 85025; 93005; G0378

== ENCOUNTER 2024-09-22 19:06 | Inpatient (IN) | payer OTHER ==
[~2024-09-22] VITALS: Ht 177.8 cm; Wt 93.7 kg
[~2024-09-22 19:06] MED LIST changes: -ACETAMINOPHEN 325 MG TAB PO ONE; +ATOR10TA PO; +FLUT1AER17 IN; +HYDR1TAB97 PO; +TAMS0.4C39 PO
--- NOTE | 2024-09-22 19:22 | ED.PDOC ---
History of Present Illness HPI Comments 74 y/o M, with a Hx of CAD s/p angioplasty, COPD, 3x PTCA, and HTN, is BIBA for c/o headache s/p unwitnessed syncope and fall, today. Per EMS report, patient's spouse called after finding the patient "passed out" on their hard-wood floor at home, earlier, this evening, at, approximately, 1830. Patient was noted to have been found with [id number] of consciousness, breathing agonally, a blood glucose of 168, a hematoma to the posterior side of his head, and skin-tears to his left elbow on scene. At time of assessment, patient is stated to be able to awake and answering questions; he comments on having no recollection of events and reports on headache to the posterior side of his head. EMS comments on reporting on patient having another syncopal with unknown etiology episode, earlier, this week on 09/16/24. Patient has no endorsed dizziness, weakness, numbness, tingling, or other associated symptoms or modifiers at this time. Time Seen by MD: 19:00 Reviewed Notes: Nurses Notes, Client Solutions Specialist Notes, Medications, Allergies Allergies: Coded Allergies: Iodine (Verified Allergy, Intermediate, HIVES, 01/01/21) Home Meds Reported Medications Clopidogrel Bisulfate (Plavix) 75 Mg Tab, 1 TAB PO QAM for CAD 01/01/21 Atorvastatin Calcium (Lipitor) 20 Mg Tab, 1 TAB PO QPM for HIGH CHOLESTEROL 01/01/21 Fluticasone Propionate (Nasal) (Allergy Relief) 50 Mcg/Act Spr, 1 SPRAY NA DAILY PRN for ALLERGIES 01/01/21 Aspirin (Aspirin) 81 Mg Tab, 1 TAB PO QAM for CAD 01/01/21 Tizanidine Hydrochloride (Zanaflex) 4 Mg Cap, 1 CAP PO DAILY PRN for FOR MUSCLE SPASM 01/17/18 Hydrocodone-Acetaminophen (Luck 7.5-325 mg) 1 Tab Tab, 1 TAB PO BID PRN for PAIN SCALE 7 THRU 10 01/17/18 Nitroglycerin (NTROSTAT SUBLINGUAL) 0.4 Mg Sl, 1 TAB SL PRN PRN for FOR CHEST PAIN *MAY REPEAT EVERY 5 MINUTES X 3 TOTAL IF NO RELIEF, INITIATE ANALGESIC THERAPY. NOTIFY PHYSICIAN *Do not crush. 01/17/18 Ranitidine Hcl (Ranitidine Hcl) 150 Mg Cap, 1 CAP PO BID PRN for GERD 01/17/18 Information Source: Patient, Emergency Med Personnel Mode of Arrival: Ambulatory Severity: Moderate Timing: Hours Duration: Since onset Prehospital treatment: 12 Lead EKG, Accucheck, Yard Pipe Grader, IVF Past Medical History PAST MEDICAL HISTORY: CAD (s/p angioplasty), COPD, HTN Surgical History: PTCA (3x) Surgical History (Other): angioplasty Family History Family History: Reviewed,noncontributory to illness Social History Smoker: Non-Smoker Alcohol: Denies ETOH Use Drugs: Denies Drug Use Lives In: Home Cardiovascular: reports: syncope Neurological: reports: headache Integumetry: reports: wounds (skin tears to left-elbow) All Other Systems: Reviewed and Negative (negative unless otherwise stated above or in HPI) Physical Exam General Appearance: No Apparent Distress, Normal, Other (pleasantly confused ) HEENT: Normal ENT Inspection, Pharynx Normal, TMs Normal Neck: Full Range of Motion, Non-Tender, Normal, Normal Inspection Respiratory: Chest Non-Tender, Lungs Clear, No Accessory Muscle Use, No Respiratory Distress, Normal Breath Sounds Cardiovascular: No Edema, No JVD, No Murmur, No Gallop, Normal Peripheral Pulses, Regular Rate/Rhythm Breast Exam: Deferred Gastrointestinal: No Organomegaly, Non Tender, No Pulsatile Mass, Normal Bowel Sounds, Soft Genitalia: Deferred Pelvic: Deferred Rectal: Deferred Extremities: No calf tenderness, Normal capillary refill, Normal inspection, Normal range of motion, Non-tender, No pedal edema Musculoskeletal : Apperance: Normal Neurologic: Alert, estate planning counselor II-XII nml as Tested, No Motor Deficits, Normal Affect, Normal Mood, No Sensory Deficits Cerebellar Function: Normal Reflexes: Normal Skin: Dry, Normal Color, Warm Lymphatic: No Adenopathy Was a procedure done? Was a procedure done?: No EKG EKG #1: Pulse Rate (adult): 62 [place]: Normal Cardiac Rhythm: NSR Block: LBBB, RBBB Hypertrophy: None ST: Normal EKG #2: Pulse Rate (adult): 62 [place]: Normal Cardiac Rhythm: NSR Block: None Hypertrophy: None ST: Normal Differential Dx Considerations may include: vasovagal response, hypoxia, hypotension, electrolyte imbalance, dehydration, closed head injury, fracture, contusions, abrasions, bruising X-Ray, Labs, Meds, VS Vital Signs Date Time Temp Pulse Resp B/P (MAP) Pulse Ox O2 Delivery O2 Flow Rate FiO2 09/22/24 20:07 61 15 97 Room Air* 0 21 09/22/24 20:05 62 09/22/24 20:02 62 09/22/24 19:54 62 09/22/24 19:30 98.1 59 15 152/69 (96) 97 98.1 09/22/24 19:13 97.6 61 16 164/78 (106) 100 97.6 09/22/24 19:11 62 Lab Test 09/22/24 20:10 09/22/24 19:18 Range/Units Troponin I High Sensitivity Pending 9 </=54 ng/L White Blood Count 9.1 # 4.4-10.8 10^3/uL Red Blood Count 5.44 4.5-5.90 10^6/uL Hemoglobin 15.9 13.5-17.5 g/dL Hematocrit 45.5 41.0-53.0 % Mean Corpuscular Volume 83.7 80.0-100.0 fL Mean Corpuscular Hemoglobin 29.2 28.0-32.0 pg Mean Corpuscular Hemoglobin Concent 34.8 32.0-36.0 g/dL Red Cell Distribution Width 13.8 11.8-14.3 % Platelet Count 174 140-450 10^3/uL Mean Platelet Volume 7.4 6.9-10.8 fL Neutrophils (%) (Auto) 61.0 37.0-80.0 % Lymphocytes (%) (Auto) 26.8 10.0-50.0 % Monocytes (%) (Auto) 8.7 0.0-12.0 % Eosinophils (%) (Auto) 2.5 0.0-7.0 % Basophils (%) (Auto) 1.0 0.0-2.0 % Neutrophils # (Auto) 5.6 1.6-8.6 10 ^3/uL Lymphocytes # (Auto) 2.5 0.4-5.4 10 ^3/uL Monocytes # (Auto) 0.8 0-1.3 10 ^3/uL Eosinophils # (Auto) 0.2 0-0.8 10 ^3/uL Basophils # (Auto) 0.1 0-0.2 10 ^3/uL Nucleated Red Blood Cells 0.1 % Prothrombin Time 11.0 9.3-11.8 sec Prothrombin Time INR 1.04 0.9-1.15 Activated Partial Thromboplast Time 25.2 24.5-34.5 SEC Sodium Level 139 136-145 mmol/L Potassium Level 3.9 3.5-5.1 mmol/L Chloride Level 105 98-107 mmol/L Carbon Dioxide Level 26 20-31 mmol/L Anion Gap 8 5-15 Blood Urea Nitrogen 23 9-23 mg/dL Creatinine 1.48 H 0.700-1.30 mg/dL Glomerular Filtration Rate Calc 50 >90 mL/min BUN/Creatinine Ratio 15.5 10.0-20.0 Serum Glucose 130 H 74-106 mg/dL Lactic Acid Level 1.9 0.4-2.0 mmol/L Calcium Level 9.7 8.7-10.4 mg/dL B-Type Natriuretic Peptide 33.36 0-100 pg/mL [place] [id number] Ph: [phone] DIAGNOSTIC IMAGING Diagnostic Imaging Report : [id number] Signed PATIENT: SOLOMON MAY ACCT: [id number] UNIT: [id number] : 1950 LOC: ER ROOM / BED: / AGE / SEX: 74 / M ADM STATUS: REG ER SERVICE 07 ORDERING PHYSICIAN: JACKLYN GAMBINO MD PROCEDURE(s): HWOCT - HEAD WITHOUT CONTRAST REASON: syncope ORDER NUMBER(s): [id number], ACCESSION NUMBER(s): [id number] EXAM: CT HEAD WITHOUT CONTRAST INDICATION: syncope TECHNIQUE: CT of the head without intravenous contrast. Radiation Dose : 1. Head: CT Dose: CTDI volume is 54.99 mGy. Dose-length product is 881.51 mGy*cm The dose indicators for CT are the volume Computed Tomography (CT) Dose Index (CTDIvol) and the Dose Length Product (DLP), and are measured in units of mGy and mGy-cm, respectively. These indicators are not patient dose, but values generated from the CT scanner acquisition factors. The report includes radiation exposure data for exposures received during this examination. COMPARISON: CT HEAD WITHOUT CONTRAST on DOS: 09/16/24 FINDINGS: There is no evidence of acute intracranial hemorrhage, extra-axial collection, mass effect, midline shift, herniation or hydrocephalus. The ventricles, sulci and cisterns are age appropriate. The quevedo-white differentiation is intact. Patchy periventricular and subcortical white matter hypoattenuation is nonspecific but may be related to small vessel ischemic disease. The visualized paranasal sinuses and mastoid air cells are clear. The surrounding soft tissues and osseous structures are unremarkable. IMPRESSION: 1. No acute intracranial abnormality. Radiation optimization: All CT scans at this facility use at least one of these dose optimization techniques: automated exposure control mA and/or kV adjustment per patient size (includes targeted exams where dose is matched to clinical indication) or iterative reconstruction. ATED BY: NHUNG YIP MD DICTATED DATE/TIME: 09/22/241952 SIGNED BY: NHUNG YIP MD SIGNED DATE/TIME: 09/22/241952 CC: [place] [id number] Ph: [phone] DIAGNOSTIC IMAGING Diagnostic Imaging Report : [id number] Signed PATIENT: SOLOMON MAY ACCT: [id number] UNIT: [id number] : 1950 LOC: ER ROOM / BED: / AGE / SEX: 74 / M ADM STATUS: REG ER SERVICE 07 ORDERING PHYSICIAN: JACKLYN GAMBINO MD PROCEDURE(s): CXRP - CHEST PORTABLE REASON: syncope ORDER NUMBER(s): [id number], ACCESSION NUMBER(s): [id number] Procedure: XY CHEST PORTABLE 09/22/2024 07:35 PM Indication: syncope Comparison: XY CHEST PORTABLE on DOS: 09/16/24 TECHNIQUE: XY CHEST PORTABLE FINDINGS: Medical devices: None. Cardiomediastinal: The heart is mildly enlarged. Pulmonary vasculature is prominent. Atherosclerotic calcification of the aortic arch noted. Lungs: No focal pulmonary opacity is seen. The costophrenic angles are clear. No pneumothorax. Bones/soft tissues: No acute abnormality is noted. IMPRESSION: 1. Mild cardiomegaly and pulmonary venous congestion. ATED BY: DANIELLE SMITH MD DICTATED DATE/TIME: 09/22/241954 SIGNED BY: DANIELLE SMITH MD SIGNED DATE/TIME: 09/22/241954 CC: Time of 1ST Reevaluation: 19:30 Reevaluation 1ST: Unchanged Patient Education/Counseling: Diagnosis, Treatment Family Education/Counseling: No Family Present Departure 1 Departure Time of Disposition: 20:38 (Patient presented with syncope today and should be admitted. Data: 1. I ordered and reviewed the result of at least 3 labs including a CBC, BMP, and troponin. 2. I independently interpreted the following tests: EKG which shows a sinus arrhythmia and a chest x-ray which shows benign chest and a CT head which shows benign brain.Risk:This patient has a high risk of morbidity due to further diagnostic testing or treatment and may suffer from an acute cardiac, neurologic, or infectious disorder. Rationale: Patient should be admitted to the hospital for further management.) Impression: Primary Impression: Syncope and collapse Additional Impressions: Metabolic encephalopathy Symptomatic bradycardia Disposition: ADMITTED INPATIENT Admit to: Tele Condition: Serious Critical Care Note Critical Care Time?: Yes Critical care comment: Syncope and collapse Authorized and Performed by: Jacklyn Gambino MD Total critical care time: Approximately 34 minutes Due to a high probability of clinically significant, life threatening deterioration, the patient required my highest level of preparedness to intervene emergently and I personally spent this critical care time directly and personally managing the patient. This critical care time included obtaining a history; examining the patient; pulse oximetry; ordering and review of studies; arranging urgent treatment with development of a management plan; evaluation of patient's response to treatment; frequent reassessment; and, discussions with other providers. This critical care time was performed to assess and manage the high probability of imminent, life-threatening deterioration that could result in multi-organ failure. It was exclusive of separately billable procedures and treating other patients and teaching time. Please see my other sections and the rest of the note for further information on patient assessment and treatment. Stability Stability form required: No Heart Score Heart Score: Heart Score Response (Comments) Value History N/A 0 EKG N/A 0 Age N/A 0 Risk Factors N/A 0 Troponin N/A 0 Total 0 I personally scribed for JACKLYN GAMBINO MD ([email or web address]) on 09/22/24 at 19:22. Electronically submitted by Ivan Liu ([email or web address]). I personally scribed for JACKLYN GAMBINO MD ([facility] on 09/22/24 at 19:53. Electronically submitted by Ivan Liu ([email or web address]). I personally scribed for JACKLYN GAMBINO MD ([facility] on 09/22/24 at 19:54. Electronically submitted by Ivan Liu ([email or web address]). I personally scribed for JACKLYN GAMBINO MD ([email or web address]) on 09/22/24 at 20:05. Electronically submitted by Ivan Liu ([email or web address]). JACKLYN GAMBINO MD Sep 22, 2024 19:22
[2024-09-22 19:25] LABS: Basophils # (auto) 0.1 10 ^3/uL (0-0.2); Eosinophils # (auto) 0.2 10 ^3/uL (0-0.8); Eosinophils % (auto) 2.5 % (0.0-7.0); Hematocrit 45.5 % (41.0-53.0); Hemoglobin 15.9 g/dL (13.5-17.5); Lymphocytes # (auto) 2.5 10 ^3/uL (0.4-5.4); Lymphocytes % (auto) 26.8 % (10.0-50.0); Mean Corpuscular Hemoglobin 29.2 pg (28.0-32.0); Mean Corpuscular Hgb Conc. 34.8 g/dL (32.0-36.0); Mean Corpuscular Volume 83.7 fL (80.0-100.0); Monocytes # (auto) 0.8 10 ^3/uL (0-1.3); Monocytes % (auto) 8.7 % (0.0-12.0); Neutrophils # (auto) 5.6 10 ^3/uL (1.6-8.6); Nucleated Red Blood Cells % 0.1 %; Platelet Count (auto) 174 10^3/uL (140-450); Red Blood Cells 5.44 10^6/uL (4.5-5.90); Red Cell Distribution Width 13.8 % (11.8-14.3); White Blood Cell 9.1 10^3/uL (4.4-10.8)
[2024-09-22 19:43] LABS: Chloride 105 mmol/L (98-107); Potassium 3.9 mmol/L (3.5-5.1); Sodium 139 mmol/L (136-145)
[2024-09-22 19:44] LABS: Anion Gap 8 (5-15); Calcium 9.7 mg/dL (8.7-10.4); Carbon Dioxide 26 mmol/L (20-31)
[2024-09-22 19:48] LABS: INR 1.04 (0.9-1.15); Partial Thromboplastin Time 25.2 SEC (24.5-34.5)
[2024-09-22 19:49] LABS: BUN/Creatinine Ratio 15.5 (10.0-20.0); Blood Urea Nitrogen 23 mg/dL (9-23)
--- NOTE | 2024-09-22 19:55 | DVH ---
EXAM: CT HEAD WITHOUT CONTRAST INDICATION: syncope TECHNIQUE: CT of the head without intravenous contrast. Radiation Dose : 1. Head: CT Dose: CTDI volume is 54.99 mGy. Dose-length product is 881.51 mGy*cm The dose indicators for CT are the volume Computed Tomography (CT) Dose Index (CTDIvol) and the Dose Length Product (DLP), and are measured in units of mGy and mGy-cm, respectively. These indicators are not patient dose, but values generated from the CT scanner acquisition factors. The report includes radiation exposure data for exposures received during this examination. COMPARISON: CT HEAD WITHOUT CONTRAST on DOS: 09/16/24 FINDINGS: There is no evidence of acute intracranial hemorrhage, extra-axial collection, mass effect, midline s hift, herniation or hydrocephalus. The ventricles, sulci and cisterns are age appropriate. The quevedo-white differentiation is intact. Patchy periventricular and subcortical white matter hypoattenuation is nonspecific but may be related to small vessel ischemic disease. The visualized paranasal sinuses and mastoid air cells are clear. The surrounding soft tissues and osseous structures are unremarkable. IMPRESSION: 1. No acute intracranial abnormality. Radiation optimization: All CT scans at this facility use at least one of these dose optimization hollie hniques: automated exposure control mA and/or kV adjustment per patient size (includes targeted exam s where dose is matched to clinical indication) or iterative reconstruction.
[2024-09-22 19:56] LABS: Glucose 130 mg/dL (74-106)
--- NOTE | 2024-09-22 19:58 | DVH ---
Procedure: XY CHEST PORTABLE 09/22/2024 07:35 PM Indication: syncope Comparison: XY CHEST PORTABLE on DOS: 09/16/24 TECHNIQUE: XY CHEST PORTABLE FINDINGS: Medical devices: None. Cardiomediastinal: The heart is mildly enlarged. Pulmonary vasculature is prominent. Atherosclerotic calcification of the aortic arch noted. Lungs: No focal pulmonary opacity is seen. The costophrenic angles are clear. No pneumothorax. Bones/soft tissues: No acute abnormality is noted. IMPRESSION: 1. Mild cardiomegaly and pulmonary venous congestion.
[2024-09-22 20:07] VITALS: PULSE 61; RESP 15; O2SAT 97
--- NOTE | 2024-09-22 21:19 | DVH ---
CLINICAL INDICATION: fall TECHNIQUE: 1 radiographic views of the right humerus were obtained. Comparison: None FINDINGS/IMPRESSION: There is no evidence of acute fracture or dislocation. The visualized joint space is well maintained. The alignment is anatomical. There is no radiopaque foreign body. HS:Y
--- NOTE | 2024-09-22 21:23 | DVH ---
CLINICAL INDICATION: fall TECHNIQUE: 2 radiographic views of the right forearm were obtained. Comparison: None FINDINGS/IMPRESSION: There is no evidence of acute fracture or dislocation. The visualized joint space is well maintained. The alignment is anatomical. There is no radiopaque foreign body. HS:Y
[2024-09-22] MEDS: ONDANSETRON HCL 4 MG/2 ML VIAL IV ONE (21:35)
[2024-09-22] MEDS: MORPHINE SULFATE 4 MG/ML SYR/VIAL IV ONE (21:39)
[2024-09-22] MEDS ORDERED: ONDANSETRON HCL 4 MG/2 ML VIAL IV PRN (22:00)
[2024-09-22 22:21] LABS: Urine Bacteria None Seen /hpf (None Seen)
[2024-09-22 22:54] LABS: Urine Blood Negative /uL (Negative); Urine Clarity Clear (Clear); Urine Color Light-Yellow (Yellow); Urine Protein, UAD 1+ (Negative); Urine Specific Gravity 1.014 (1.001-1.035); Urine Squamous Epithelial Cell None Seen /hpf (<5); Urine Urobilinogen Normal (Negative); Urine WBC < 1 /HPF (0-3)
[2024-09-22] MEDS: FAMOTIDINE 20 MG TAB PO SCH (23:07)
[2024-09-22] MEDS: SODIUM CHLORIDE 0.9% 1,000 ML IV ONE (23:08)
[2024-09-22] MEDS: ATORVASTATIN 20 MG TAB PO SCH (23:48)
[2024-09-22] MEDS: ENOXAPARIN SOD 40 MG/0.4 ML SYRINGE SC SCH (23:48)
[2024-09-23] MEDS: NICOTINE 7MG/24HR TOPICAL PATCH TD ONE (00:43)
[2024-09-23] MEDS: HYDROcodone-ACET 5/325MG TAB PO PRN (00:58)
--- NOTE | 2024-09-23 01:57 | DVHHP2 ---
Admitting Diagnosis: Recurrent Syncope episodes, Symptomatic Bradycardia History of Present Illness History Source: Patient Exam Limitations: No limitations HPI Mr. Isaias Lopez is a 74 yo male with a history of COPD, HLD, hypertension, CAD s/p angioplasty, Syncope episodes who presents with a chief complaint of status post unwitnessed syncopal episode, patient was found on floor by his . Patient reports he has had x2 syncopal episodes in the past week with intermittent midsternal non radiating chest pain , syncopal episode yesterday patient endorses hitting back of his head. CT head wo contrast resulted 1. No acute intracranial abnormality. Patient endorses dizziness, headaches. Patient denies blurry vision, nausea, vomiting, fevers. Patient admitted for further evaluation and treatment. Home Meds Reported Medications Tamsulosin Hcl (Tamsulosin Hcl) 0.4 Mg Cap, 1 CAP PO HS for 90 Days, #90 09/24/24 Atorvastatin Calcium (Lipitor) 10 Mg Tab, 1 TAB PO HS for 90 Days, #90 09/24/24 Efyycnaadli-Eucvnwijojbf-Dlaao (Trelegy Ellipta 200-62.5-25 Mcg/INH) 1 Aer Aer, 1 PUFF IN DAILY for 30 Days, #60 09/24/24 Hydrocodone-Acetaminophen (Hydrocodone/Acetaminophen 5-325 mg) 1 Tab Tab, 1 TAB PO DAILY PRN for 30 Days, #30 09/24/24 Clopidogrel Bisulfate (Plavix) 75 Mg Tab, 1 TAB PO QAM for CAD 01/01/21 Aspirin (Aspirin) 81 Mg Tab, 1 TAB PO QAM for CAD 01/01/21 Tizanidine Hydrochloride (Zanaflex) 4 Mg Cap, 1 CAP PO DAILY PRN for FOR MUSCLE SPASM 01/17/18 Nitroglycerin (NTROSTAT SUBLINGUAL) 0.4 Mg Sl, 1 TAB SL PRN PRN for FOR CHEST PAIN *MAY REPEAT EVERY 5 MINUTES X 3 TOTAL IF NO RELIEF, INITIATE ANALGESIC THERAPY. NOTIFY PHYSICIAN *Do not crush. 01/17/18 Ranitidine Hcl (Ranitidine Hcl) 150 Mg Cap, 1 CAP PO BID PRN for GERD 01/17/18 Discontinued Reported Medications Atorvastatin Calcium (Lipitor) 20 Mg Tab, 1 TAB PO QPM for HIGH CHOLESTEROL 01/01/21 Fluticasone Propionate (Nasal) (Allergy Relief) 50 Mcg/Act Spr, 1 SPRAY NA DAILY PRN for ALLERGIES 01/01/21 Past Medical History Cardiac: CAD (with angioplasty), HTN, Hyperlipidemia Pulmonary: COPD Central Nervous System: Other (recurrent syncopal episodes) GI: No pertinent Hx Hemotology/Oncology: No pertinent Hx Hepatobiliary: No pertinent Hx Psychiatric: No pertinent Hx Musculoskeletal: No pertinent Hx Rheumotologic: No pertinent Hx Infectious Disease: No peritnent Hx ENT: No pertinent Hx Renal/: No pertinent Hx Endocrine: No pertinent Hx Dermatology: No pertinent Hx Patient Family History: Cardiovascular disease G8 MOTHER G8 FATHER Cerebrovascular accident (CVA) G8 MOTHER, Onset:60 years & older FH: kidney failure G8 MOTHER Smoker: <1 pack per day Alocohol: None Drugs: None Lives with: With family Domestic Violence: Neg Review of Systems Constitutional: No symptom reported Ears, Nose, & Throat: No symptom reported Eyes: No symptom reported Pulmonary/Respiratory: No symptom reported Cardiovascular: Chest Pain (intermittent ) Gastrointestinal: No symptom reported Genitourinary: No symptom reported Musculoskeletal: No symptom reported Skin: No symptom reported Psychiatric: No symptom reported Endocrine: No symptom reported Hemotologic/Lymphatic: No symptom reported All Other Systems syncope , dizziness H&P Exam Vital Signs Vital Signs Date Time Temp Pulse Resp B/P (MAP) Pulse Ox O2 Delivery O2 Flow Rate FiO2 09/23/24 00:00 60 14 119/54 (75) 92 09/22/24 20:07 Room Air* 0 21 09/22/24 19:30 98.1 98.1 General Appeara: Well developed, Well nourished, Normal Appearance Head Exam: Normal inspection Neck Exam: Normal inspection, Non-tender, Normal alignment Eye Exam: bilateral eye Normal inspection, bilateral eye PERRL, bilateral eye EOMI Ear Exam: bilateral ear Auricle normal Nasal Exam: Normal inspection Mouth: Normal Inspection Pulmonary/Respiratory: Normal inspection, Normal breath sounds, Chest non- tender, Lungs clear Cardiovascular/Chest: Normal inspection, Regular rate, Normal Rhythm Labs/Xrays Labs Test 09/22/24 22:18 09/22/24 22:14 09/22/24 19:18 Range/Units Troponin I High Sensitivity 146 *H </=54 ng/L Urine Color Light-yellow Yellow Urine Clarity Clear Clear Urine pH 6.0 5.0-9.0 Urine Specific [place] 1.014 1.001-1.035 Urine Protein 1+ H Negative Urine Ketones Negative Negative Urine Blood Negative Negative /uL Urine Nitrite Negative Negative Urine Bilirubin Negative Negative Urine Urobilinogen Normal Negative mg/dL Urine Leukocyte Esterase Negative Negative /uL Urine RBC 1 0 - 3 /hpf Urine Microscopic WBC < 1 0-3 /HPF Urine Squamous Epithelial Cells None seen <5 /hpf Urine Bacteria None seen None Seen /hpf Urine Glucose Normal Normal mg/dL White Blood Count 9.1 # 4.4-10.8 10^3/uL Red Blood Count 5.44 4.5-5.90 10^6/uL Hemoglobin 15.9 13.5-17.5 g/dL Hematocrit 45.5 41.0-53.0 % Mean Corpuscular Volume 83.7 80.0-100.0 fL Mean Corpuscular Hemoglobin 29.2 28.0-32.0 pg Mean Corpuscular Hemoglobin Concent 34.8 32.0-36.0 g/dL Red Cell Distribution Width 13.8 11.8-14.3 % Platelet Count 174 140-450 10^3/uL Mean Platelet Volume 7.4 6.9-10.8 fL Neutrophils (%) (Auto) 61.0 37.0-80.0 % Lymphocytes (%) (Auto) 26.8 10.0-50.0 % Monocytes (%) (Auto) 8.7 0.0-12.0 % Eosinophils (%) (Auto) 2.5 0.0-7.0 % Basophils (%) (Auto) 1.0 0.0-2.0 % Neutrophils # (Auto) 5.6 1.6-8.6 10 ^3/uL Lymphocytes # (Auto) 2.5 0.4-5.4 10 ^3/uL Monocytes # (Auto) 0.8 0-1.3 10 ^3/uL Eosinophils # (Auto) 0.2 0-0.8 10 ^3/uL Basophils # (Auto) 0.1 0-0.2 10 ^3/uL Nucleated Red Blood Cells 0.1 % Prothrombin Time 11.0 9.3-11.8 sec Prothrombin Time INR 1.04 0.9-1.15 Activated Partial Thromboplast Time 25.2 24.5-34.5 SEC Sodium Level 139 136-145 mmol/L Potassium Level 3.9 3.5-5.1 mmol/L Chloride Level 105 98-107 mmol/L Carbon Dioxide Level 26 20-31 mmol/L Anion Gap 8 5-15 Blood Urea Nitrogen 23 9-23 mg/dL Creatinine 1.48 H 0.700-1.30 mg/dL Glomerular Filtration Rate Calc 50 >90 mL/min BUN/Creatinine Ratio 15.5 10.0-20.0 Serum Glucose 130 H 74-106 mg/dL Lactic Acid Level 1.9 0.4-2.0 mmol/L Calcium Level 9.7 8.7-10.4 mg/dL B-Type Natriuretic Peptide 33.36 0-100 pg/mL Assessment/Plan Problem List: (1) Symptomatic bradycardia (2) Syncope and collapse Plan This is a 74 yo male with a history of COPD, Hyperlipidemia, hypertension, CAD with angioplasty, syncopal episodes , who presents to the hospital with status post unwitnessed syncopal episode. Patient found to have 1. Recurrent Syncope 2. Symptomatic Bradycardia 3. Elevated troponin 4. COPD without exacerbation 5. Hypertension Plan Admit Telemetry unit Cardiology consultation, 2D echocardiogram last completed on 09/16, serial troponin levels, ASA, Statin Orthostatic blood pressures Lovenox SC daily Fall Precautions Smoking cessation education Discussed all above with patient who verbalizes agreement and understanding of care plan. All questions were answered. Discussed care plan with patient nurse Lindsay JOE. Discussed assessment and care plan with supervising MD. Plan discussed with: Patient, Other Code Visit Code Visit Total Time (mins): 45 Additional Comments Additional Comments Additional Comments Patient was seen and evaluated by me. I agree with the assessment and plan as outlined by my nurse practitioner. NAOMI FERNANDEZ Sep 23, 2024 01:57 RENEE IRVIN MD Sep 24, 2024 18:37
[2024-09-23 04:19] LABS: Basophils # (auto) 0.1 10 ^3/uL (0-0.2); Basophils % (auto) 0.8 % (0.0-2.0); Eosinophils # (auto) 0.1 10 ^3/uL (0-0.8); Eosinophils % (auto) 1.5 % (0.0-7.0); Hematocrit 42.4 % (41.0-53.0); Hemoglobin 14.7 g/dL (13.5-17.5); Lymphocytes # (auto) 1.8 10 ^3/uL (0.4-5.4); Lymphocytes % (auto) 18.8 % (10.0-50.0); Mean Corpuscular Hemoglobin 28.9 pg (28.0-32.0); Mean Corpuscular Hgb Conc. 34.5 g/dL (32.0-36.0); Mean Corpuscular Volume 83.7 fL (80.0-100.0); Monocytes # (auto) 0.8 10 ^3/uL (0-1.3); Monocytes % (auto) 8.5 % (0.0-12.0); Neutrophils # (auto) 6.9 10 ^3/uL (1.6-8.6); Neutrophils % (auto) 70.4 % (37.0-80.0); Platelet Count (auto) 169 10^3/uL (140-450); Red Blood Cells 5.07 10^6/uL (4.5-5.90); Red Cell Distribution Width 14.1 % (11.8-14.3); White Blood Cell 9.7 10^3/uL (4.4-10.8)
[2024-09-23 04:30] LABS: Carbon Dioxide 23 mmol/L (20-31)
[2024-09-23 04:31] LABS: Calcium 9.2 mg/dL (8.7-10.4)
[2024-09-23 04:35] LABS: BUN/Creatinine Ratio 16.1 (10.0-20.0); Blood Urea Nitrogen 18 mg/dL (9-23)
[2024-09-23 04:41] LABS: Potassium 4.4 mmol/L (3.5-5.1); Sodium 138 mmol/L (136-145)
[2024-09-23 04:46] LABS: Chloride 109 mmol/L (98-107)
[2024-09-23 04:47] LABS: Glucose 108 mg/dL (74-106)
[2024-09-23 04:50] LABS: Anion Gap 6 (5-15)
[2024-09-23] MEDS: ACETAMINOPHEN 325 MG TAB PO PRN (06:24)
--- NOTE | 2024-09-23 07:06 | ECG ---
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
[2024-09-23 08:34] VITALS: PULSE 51; RESP 15; O2SAT 93
--- NOTE | 2024-09-23 09:28 | DVH ---
EXAMINATION: MRI BRAIN HEAD WO CONTRAST INDICATION: syncope COMPARISON: MRI BRAIN HEAD WO CONTRAST on DOS: 09/16/24 TECHNIQUE: Multiplanar, multisequence magnetic resonance imaging of the brain was performed without the use of i ntravenous contrast. FINDINGS: No evidence of acute infarct. No intracranial hemorrhage. No mass effect. There is periventricular/deep white matter T2/FLAIR hyperintensity is nonspecific, but most commonly associated with chronic microvascular disease. The ventricles and sulci are normal in size for age. Clear basal cisterns. Flow voids in the major intracranial vessels are maintained. No abnormality of the orbits. Paranasal sinuses and mastoid air cells are clear. No abnormality of the visualized osseous structures and extracranial soft tissues. IMPRESSION: 1. No acute infarct, intracranial hemorrhage, mass effect, or hydrocephalus.
[2024-09-23] MEDS: ASPirin 81 mg TAB PO SCH (10:08)
--- NOTE | 2024-09-23 11:09 | DVHINCON2 ---
Date Seen: Sep 23, 2024 Referring Physician MARCO Deluna Reason for Consultation Syncope and bradycardia History of Present Illness This is a pleasant 74-year-old man who presented to the emergency room via EMS with a chief complaint of syncopal event. Per patient, he was feeding his cats last evening when he experienced some dizziness and a subsequent unwitnessed syncopal event. at bedside states she heard a loud noise and found the patient on the floor "not breathing" for which she called 911. In the meantime, she "slapped" the patient as well as providing substernal rubbing with the patient breathing soon after. There was no pulse check or CPR provided. Upon EMS arrival he was found with a BGL of 160 ng/dL. Patient and reports recent intermittent episodes of dizziness, substernal chest pain, and some generalized weakness during the past two weeks. The patient was also recently admitted for syncope with AMA on 09/17/2024. At that time, he underwent a brain MRI and was seen by primary financial operations clerk Dr. Jacob with recommendations for close heart monitoring given bradycardia and neurological evaluation given a syncopal event with associated urinary incontinence and shaking movements at that time. Patient has undergone multiple 12 lead electrocardiograms x 3 revealing a sinus bradycardia rhythm with an associated first-degree AV block, right bundle branch block, and ST segment depression to lateral leads. sewage disposal worker revealed a sinus bradycardia rhythm with a heart rate as low as 45 bpm, no evidence of high-degree AV blocks, or significant sinus pauses. Troponin levels have peaked in the 140s ng/L now trending down. Significant medical history includes coronary artery disease status post two PCIs including LCx x 2DES (03/2018) and RCA x 1DES (12/2020) with current plavix therapy, hypertension, dyslipidemia, benign prostatic hyperplasia, and COPD. Of note, the patient was recently prescribed sildenafil. Past Medical History Past medical history reviewed. No other significant than mentioned above. Past Surgical History See HPI. Family History: Cardiovascular disease G8 MOTHER G8 FATHER Cerebrovascular accident (CVA) G8 MOTHER, Onset:60 years & older FH: kidney failure G8 MOTHER Family History Family history reviewed. Social History Denies the use of illicit drugs or alcohol. Allergies: Coded Allergies: Iodine (Verified Allergy, Intermediate, HIVES, 01/01/21) Home Meds Reported Medications Clopidogrel Bisulfate (Plavix) 75 Mg Tab, 1 TAB PO QAM for CAD 01/01/21 Atorvastatin Calcium (Lipitor) 20 Mg Tab, 1 TAB PO QPM for HIGH CHOLESTEROL 01/01/21 Fluticasone Propionate (Nasal) (Allergy Relief) 50 Mcg/Act Spr, 1 SPRAY NA DAILY PRN for ALLERGIES 01/01/21 Aspirin (Aspirin) 81 Mg Tab, 1 TAB PO QAM for CAD 01/01/21 Tizanidine Hydrochloride (Zanaflex) 4 Mg Cap, 1 CAP PO DAILY PRN for FOR MUSCLE SPASM 01/17/18 Hydrocodone-Acetaminophen ([place] 7.5-325 mg) 1 Tab Tab, 1 TAB PO BID PRN for PAIN SCALE 7 THRU 10 01/17/18 Nitroglycerin (NTROSTAT SUBLINGUAL) 0.4 Mg Sl, 1 TAB SL PRN PRN for FOR CHEST PAIN *MAY REPEAT EVERY 5 MINUTES X 3 TOTAL IF NO RELIEF, INITIATE ANALGESIC THERAPY. NOTIFY PHYSICIAN *Do not crush. 01/17/18 Ranitidine Hcl (Ranitidine Hcl) 150 Mg Cap, 1 CAP PO BID PRN for GERD 01/17/18 Home Meds Home medications reviewed. Current Medications Current Medications Medications (Trade) Dose Ordered Sig/Fidelia Route PRN Reason Start Time Stop Time Status Last Admin Ondansetron HCl (Zofran) 4 mg Q6HP PRN IV NAUSEA / VOMITING 09/22/24 22:00 Acetaminophen/ Hydrocodone Bitart ([place] 5/325MG Tab) 1 tab Q6HPRN PRN PO PAIN SCALE 1 THRU 6 09/22/24 22:00 09/23/24 00:58 Acetaminophen (Tylenol Tablet) 650 mg Q6HPRN PRN PO PAIN SCALE 1-3 OR TEMP>100.4 09/22/24 22:00 09/23/24 06:24 Famotidine (Pepcid Tablet) 20 mg BID PO 09/22/24 22:00 09/23/24 10:07 Aspirin 81 mg DAILY PO 09/23/24 10:00 09/23/24 10:08 Atorvastatin Calcium (Lipitor) 40 mg HS PO 09/22/24 23:15 09/23/24 10:07 Enoxaparin Sodium (Lovenox) 40 mg DAILY SC 09/22/24 23:15 09/23/24 10:08 Review of Systems Constitutional: Generalized weakness Ears, Nose, & Throat: No symptom reported Eyes: No symptom reported Neurological: Dizziness, syncope Pulmonary/Respiratory: No symptom reported Cardiovascular: Intermittent chest pain Gastrointestinal: No symptom reported Genitourinary: No symptom reported Musculoskeletal: No symptom reported Skin: No symptom reported Psychiatric: No symptom reported Endocrine: No symptom reported Hemotologic/Lymphatic: No symptom reported Vital Signs Vital Signs Date Time Temp Pulse Resp B/P (MAP) Pulse Ox O2 Delivery O2 Flow Rate FiO2 09/23/24 08:34 51 15 93 Room Air* 0 21 09/23/24 08:00 97.7 116/51 (72) 97.7 Physical Exam General Appearance: Cooperative. Well developed. Well nourished. In no acute distress Head Exam: Normal inspection Neck Exam: Normal inspection. Non-tender. Normal alignment Pulmonary/Respiratory: Chest non-tender. Clear bilateral breath sounds Cardiovascular/Chest: Regular rate and rhythm. S1, S2. Sinus bradycardia with first-degree AV block and RBBB. ST segment depression to lateral leads. No murmurs. No JVD. Peripheral Pulses: 2+ Radial (R). 2+ Radial (L). 2+ Pedal (R). 2+ Pedal (L) Abdominal Exam: Normal bowel sounds. Soft. Nontender. No hepatospenomegaly. No masses Ankle Exam: Negative ankle edema Lower extremities: Negative lower extremity edema Neuro/Mental Status: A&O x4. Coherent Thoughts/Psych: Normal thought pattern. Appropriate mood and affect. Good judgement and insight Appearance: In no acute distress Skin Exam: Normal inspection. Normal color. Warm. Dry Labs/Diagnostic Data Labs Test 09/23/24 04:03 09/22/24 22:14 09/22/24 19:18 Range/Units White Blood Count 9.7 4.4-10.8 10^3/uL Red Blood Count 5.07 4.5-5.90 10^6/uL Hemoglobin 14.7 13.5-17.5 g/dL Hematocrit 42.4 41.0-53.0 % Mean Corpuscular Volume 83.7 80.0-100.0 fL Mean Corpuscular Hemoglobin 28.9 28.0-32.0 pg Mean Corpuscular Hemoglobin Concent 34.5 32.0-36.0 g/dL Red Cell Distribution Width 14.1 11.8-14.3 % Platelet Count 169 140-450 10^3/uL Mean Platelet Volume 7.5 6.9-10.8 fL Neutrophils (%) (Auto) 70.4 37.0-80.0 % Lymphocytes (%) (Auto) 18.8 10.0-50.0 % Monocytes (%) (Auto) 8.5 0.0-12.0 % Eosinophils (%) (Auto) 1.5 0.0-7.0 % Basophils (%) (Auto) 0.8 0.0-2.0 % Neutrophils # (Auto) 6.9 1.6-8.6 10 ^3/uL Lymphocytes # (Auto) 1.8 0.4-5.4 10 ^3/uL Monocytes # (Auto) 0.8 0-1.3 10 ^3/uL Eosinophils # (Auto) 0.1 0-0.8 10 ^3/uL Basophils # (Auto) 0.1 0-0.2 10 ^3/uL Nucleated Red Blood Cells 0.0 % Sodium Level 138 136-145 mmol/L Potassium Level 4.4 3.5-5.1 mmol/L Chloride Level 109 H 98-107 mmol/L Carbon Dioxide Level 23 20-31 mmol/L Anion Gap 6 5-15 Blood Urea Nitrogen 18 9-23 mg/dL Creatinine 1.12 0.700-1.30 mg/dL Glomerular Filtration Rate Calc 70 >90 mL/min BUN/Creatinine Ratio 16.1 10.0-20.0 Serum Glucose 108 H 74-106 mg/dL Calcium Level 9.2 8.7-10.4 mg/dL Troponin I High Sensitivity 118 *H </=54 ng/L Thyroid Stimulating Hormone (TSH) 1.99 0.55-4.78 uIU/mL Urine Color Light-yellow Yellow Urine Clarity Clear Clear Urine pH 6.0 5.0-9.0 Urine Specific [place] 1.014 1.001-1.035 Urine Protein 1+ H Negative Urine Ketones Negative Negative Urine Blood Negative Negative /uL Urine Nitrite Negative Negative Urine Bilirubin Negative Negative Urine Urobilinogen Normal Negative mg/dL Urine Leukocyte Esterase Negative Negative /uL Urine RBC 1 0 - 3 /hpf Urine Microscopic WBC < 1 0-3 /HPF Urine Squamous Epithelial Cells None seen <5 /hpf Urine Bacteria None seen None Seen /hpf Urine Glucose Normal Normal mg/dL Prothrombin Time 11.0 9.3-11.8 sec Prothrombin Time INR 1.04 0.9-1.15 Activated Partial Thromboplast Time 25.2 24.5-34.5 SEC Lactic Acid Level 1.9 0.4-2.0 mmol/L B-Type Natriuretic Peptide 33.36 0-100 pg/mL Assessment Syncope and collapse NSTEMI, questionable type I Rule out structural heart disease Rule out orthostatic hypotension Rule out carotid artery stenosis ? Symptomatic bradycardia Severe CAD status post PCIs x3 MAZIN (on Plavix) Hypertension Dyslipidemia Plan/Recommendation We will continue the following plan/recommendations (Dr. Jacob): * Transthoracic echocardiogram to evaluate cardiac function * Cardiolite stress test rule out coronary ischemia * Bilateral carotid duplex rule out stenosis * Orthostatic vital signs * Avoid AV zoe blocking agents * Monitor ECG changes closely * Notify Cardiology of high-degree AV blocks or HR < 40 bpm * Consider neurological evaluation * Previous syncopal event associated with urinary incontinence and convulsion like movements * DVT/VTE prophylaxis Thank you for allowing us to participate in this patient's care. Please call if you have any questions or concerns. This medical document was created using an electronic medical record system with voice recognition software and computerized dictation system. Although this document has been carefully reviewed, there might still be some phonetic and typographical errors. Occasional wrong-word or ``sound-alike substitutions may have occurred due to the inherent limitations of voice recognition software. These areas are purely typographical due to imperfections of the software programs and do not reflect any compromise in the patient's medical care. Please read the chart carefully and recognize, using context, where these substitutions have occurred. Plan discussed with: Patient, Spouse, Other NYHA Physical activity limitations: NA Date of Service: Sep 23, 2024 Billing Provider: JAZMIN HINTON Cardiology Common Codes: 51077-HYCFYAT INP/OBS CARE (High) JAZMIN HINTON Sep 23, 2024 11:09
--- NOTE | 2024-09-23 11:54 | DVH ---
Carotid Duplex Clinical History: Syncope rule out stenosis Comparison: None Technique: Duplex Doppler evaluation of the extracranial carotid and vertebral arteries including color Doppler and spectral/pulsed waveform analysis was performed. Findings: RIGHT SIDE: The peak systolic velocities are 91 cm/s in the CCA, 92 cm/s in the ICA. The ICA/CCA ratio is 1.0. The external carotid artery is patent with peak systolic velocity of 96 cm/s proximally. There is appropriate antegrade flow in the right vertebral artery. LEFT SIDE: The peak systolic velocities are 138 cm/s in the CCA, 1 117 cm/s in the ICA. The ICA/CCA ratio is 0. 8. The external carotid artery is patent with peak systolic velocity of 81 cm/s proximally. There is appropriate antegrade flow in the left vertebral artery. IMPRESSION: Less than 50% stenosis of bilateral internal carotid artery systems based on peak systolic velocity c riteria and presence of atheromatous plaque at the carotid artery bulbs. Nonspecific mildly elevated velocities in left common carotid artery. Reference: Radiology 2003; 229:340-346 Normal ICA PSV is <125 cm/sec and no plaque or intimal thickening is visible sonographically additional criteria include ICA/CCA PSV ratio <2.0 and ICA EDV <40 cm/sec <50% ICA stenosis ICA PSV is <125 cm/sec and plaque or intimal thickening is visible sonographically additional criteria include ICA/CCA PSV ratio <2.0 and ICA EDV <40 cm/sec 50-69% ICA stenosis ICA PSV is 125-230 cm/sec and plaque is visible sonographically additional criteria include ICA/CCA PSV ratio of 2.0-4.0 and ICA EDV of 40-100 cm/sec 70% ICA stenosis but less than near occlusion ICA PSV is >230 cm/sec and visible plaque and luminal narrowing are seen at quevedo-scale and color Dopp ler ultrasound (the higher the Doppler parameters lie above the threshold of 230 cm/sec, the greater the likelihood of severe disease) additional criteria include ICA/CCA PSV ratio >4 and ICA EDV >100 cm/sec
[2024-09-23] MEDS: REGADENOSON 0.4 MG/5 ML SYRG IV ONE ×2 (12:43→12:47)
--- NOTE | 2024-09-23 13:40 | DVHSR ---
APPROVED REPORT EXAM: Two-dimensional and M-mode echocardiogram with Doppler and color Doppler. Blood Pressure: 116/51 mmHg INDICATION Syncope RISK FACTORS Height: 70, Weight: 185 DIMENSIONS LVDd5.2 (3.8-5.7cm)LA (2D)4.5 (1.9-4.0cm)Aortic Root3.1 (2.0-3.7cm) LVDs3.8 (2.5-4.0cm)LA (MM) (1.9-4.0cm)Aortic Cusp Exc1.8 (1.5-2.0cm) EF (%) 53.0 (55-70%)Rt. Atrium4.4 (1.9-4.0cm)Asc. Aorta cm IVSd1.2 (0.7-1.1cm)RV (D) (1.8-2.4cm) Mitral Valve MitralMitral Stenosis E wave0.53m/sMV Mean GR.mmHg A wave0.79m/sMV Peak GR.mmHg E/A ratio0.72D MVAcm2 DECEL [id number] 1/2 [id number] IVRTmsDop MVA1.90cm2 Aortic Valve Aortic ValveAortic Stenosis V11.29m/Lucia Mean GR.4mmHg V21.38m/Lucia Peak GR.8mmHg LVOT Diameter2.0 (1.8-2.4cm)Doppler AVA2.94cm2 Pulmonic Valve V20.77m/s Tricuspid Valve TR Velocity3.26m/s [id number] Other Information Technically limited study due to body habitus and patient position. Conclusion There is mild concentric left ventricular hypertrophy Left ventricular systolic function is preserved Ejection fraction is estimated at 55% There is biatrial enlargement There is no gross valvular pathology There is no pericardial effusion
[2024-09-23 19:57] VITALS: BP 127/59; PULSE 52; RESP 19; RESP 20; TEMP 97.9; O2SAT 94
[2024-09-23 20:00] VITALS: PULSE 52; RESP 19; O2SAT 94
[2024-09-24] VITALS (8 sets, daily range): BP systolic 122–146; BP diastolic 58–72; PULSE 48–66; RESP 17–20; TEMP 97.6–98.2; O2SAT 91–95
[2024-09-24 07:59] LABS: Basophils # (auto) 0.1 10 ^3/uL (0-0.2); Basophils % (auto) 1.2 % (0.0-2.0); Eosinophils # (auto) 0.2 10 ^3/uL (0-0.8); Eosinophils % (auto) 2.7 % (0.0-7.0); Hematocrit 41.4 % (41.0-53.0); Hemoglobin 14.5 g/dL (13.5-17.5); Lymphocytes # (auto) 1.3 10 ^3/uL (0.4-5.4); Lymphocytes % (auto) 16.7 % (10.0-50.0); Mean Corpuscular Hemoglobin 29.3 pg (28.0-32.0); Mean Corpuscular Volume 83.6 fL (80.0-100.0); Monocytes # (auto) 0.5 10 ^3/uL (0-1.3); Monocytes % (auto) 6.6 % (0.0-12.0); Neutrophils # (auto) 5.7 10 ^3/uL (1.6-8.6); Neutrophils % (auto) 72.8 % (37.0-80.0); Nucleated Red Blood Cells % 0.1 %; Platelet Count (auto) 156 10^3/uL (140-450); Red Blood Cells 4.95 10^6/uL (4.5-5.90); Red Cell Distribution Width 13.7 % (11.8-14.3); White Blood Cell 7.8 10^3/uL (4.4-10.8)
[2024-09-24 08:01] LABS: Chloride 106 mmol/L (98-107); Potassium 4.3 mmol/L (3.5-5.1); Sodium 139 mmol/L (136-145)
[2024-09-24 08:02] LABS: Anion Gap 7 (5-15); Calcium 9.7 mg/dL (8.7-10.4); Carbon Dioxide 26 mmol/L (20-31)
[2024-09-24 08:07] LABS: BUN/Creatinine Ratio 11.5 (10.0-20.0); Blood Urea Nitrogen 13 mg/dL (9-23); Glucose 140 mg/dL (74-106)
--- NOTE | 2024-09-24 13:27 | DVHSR ---
APPROVED REPORT Exam: Nuclear Stress Test Indication: Syncope, R/O CORONARY ISCHEMIA Stress Tech: Tawana Laguerre Ht: 5 ft 10 in Wt: 185 lbs BSA: 2.02 m2 BMI: 26.54 Medical History Medical History: COPD, Hyperlipidemia, HTN, CAD s/p stent X3 Allergies: IODINE Stress Test Details Stress Test: Pharmacologic stress testing performed using 0.4 mg of regadenoson per 5 mL given IV ov er 10 seconds. Reason for pharmacologic stress test: SYNCOPE, R/O CORONOARY ISCHEMIA. HR Resting HR: 57 bpmMax Heart Rate (APMHR): 148 bpm Max HR Achieved: 65 bpmTarget HR (85% APMHR): 126 bpm % of APMHR: 44 Recovery HR: 61 bpm BP Resting BP: 130/62 mmHg Recovery BP: 130/56 mmHg ECG Resting ECG: SEE BASELINE EKG Clinical Reason for Termination: Completed protocol Nurse Comments Received patient from Nuclear Medicine. Patient is A&O x4 and on RA. FOR VS please refer back to st ress test assessment documentation. Patient is connected to cardiac/vascular sonographer. See cardio-neuro proce dural notes for addtional details. PIV flushes well. Reviewed POC and patient verbalizes understand ing and consents to test. Lexiscan stress test performed per protocol. gyroscope technician administered the Cardiolite. Pat ient tolerated well and vitals returned to baseline. Transferred to Nuclear Medicine via wheelchair with tech in stable condition. Stress ECG Conclusion The quality of the study is good. There is homogeneous radiotracer uptake throughout the LV myocardium on both stress and rest SPECT im ages. There is no evidence of vasodilator induced myocardial ischemia. The left ventricular systolic function is preserved with a measured ejection fraction of 65%. NM EXAM: Myocardial Perfusion REST/STRESS Imaging Protocol: Rest Tc-99m/Stress Tc-99m 1 day Resting Data Rest SPECT myocardial perfusion imaging was performed in supine position 60 minutes following the int ravenous injection of 12 mCi of Tc-99m Sestamibi. Time of rest injection: 1110 Time of rest imagin Administration Route: IV Administration Site: Left AC Pharmacologic Stress Pharmacologic stress test was performed by injecting Regadenoson 0.4 mg IV push followed by the intra venous injection of 36 mCi of Tc-99m Sestamibi. Time of stress injection: 1244 Time of stress imagin Administration Route: IV Administration Site: Left AC Gated Stress SPECT was performed 60 minutes after stress injection. The images were gated to evaluate regional wall motion and calculate left ventricular ejection fracti on. Stress only was performed in the Supine position. Study Data Post stress, the left ventricular ejection was 65%.. Nuclear Conclusion The quality of the study is good. There is homogeneous radiotracer uptake throughout the LV myocardium on both stress and rest SPECT im ages. There is no evidence of vasodilator induced myocardial ischemia. The left ventricular systolic function is preserved with a measured ejection fraction of 65%.
--- NOTE | 2024-09-24 18:39 | DVHPN2 ---
Subjective Patient was complaining of neck pain with radiation to the shoulder and right upper extremity along with the numbness. Patient stated that he had a fall at home on Monday. Reviewed: Care Plan Changes from previous H/P or p: No Changes Objective Vitals Vital Signs Date Time Temp Pulse Resp B/P (MAP) Pulse Ox O2 Delivery O2 Flow Rate FiO2 09/24/24 17:00 97.6 54 18 146/59 (88) 91 97.6 09/24/24 08:30 Room Air* 0 21 Intake/Output Intake and Output 09/24/24 07:00 Intake Total 800 ml Output Total 1000 ml Balance -200 ml Intake Oral 800 ml Output Urine Total 1000 ml # Voids 3 Exam HEENT pupils are reactive Neck is supple CV is S1-S2 regular rate and rhythm Respiratory by the clear neck GI positive bowel sound Extremity no edema QUILT STUFFER no motor deficits Medications Current Medications Medications Dose Ordered Sig/Fidelia Route Start Time Stop Time Status Last Admin Dose Admin Ondansetron HCl 4 mg Q6HP PRN IV 09/22/24 22:00 Acetaminophen/ Hydrocodone Bitart 1 tab Q6HPRN PRN PO 09/22/24 22:00 09/24/24 08:43 1 TAB Acetaminophen 650 mg Q6HPRN PRN PO 09/22/24 22:00 09/23/24 16:41 650 MG Famotidine 20 mg BID PO 09/22/24 22:00 09/24/24 08:40 20 MG Aspirin 81 mg DAILY PO 09/23/24 10:00 09/24/24 08:41 81 MG Atorvastatin Calcium 40 mg HS PO 09/22/24 23:15 09/23/24 10:07 40 MG Enoxaparin Sodium 40 mg DAILY SC 09/22/24 23:15 09/24/24 08:40 40 MG Laboratory Results Laboratory Tests 09/24/24 07:38 Chemistry Test 09/24/24 07:38 Calcium Level 9.7 mg/dL (8.7-10.4) Urinalysis Test 09/22/24 22:14 Urine Color Light-yellow (Yellow) Urine Clarity Clear (Clear) Urine pH 6.0 (5.0-9.0) Urine Specific [place] 1.014 (1.001-1.035) Urine Protein 1+ (Negative) H Urine Ketones Negative (Negative) Urine Blood Negative /uL (Negative) Urine Nitrite Negative (Negative) Urine Bilirubin Negative (Negative) Urine Urobilinogen Normal mg/dL (Negative) Urine Leukocyte Esterase Negative /uL (Negative) Urine RBC 1 /hpf (0 - 3) Urine Microscopic WBC < 1 /HPF (0-3) Urine Squamous Epithelial Cells None seen /hpf (<5) Urine Bacteria None seen /hpf (None Seen) Urine Glucose Normal mg/dL (Normal) Assessment/Plan Assessment/Plan 74-year-old male with known history of coronary artery disease status post PCI with 3 stents, hypertension, dyslipidemia who presented to the hospital with syncope as well as questionable seizure found to have 1. Syncope and collapse rule out seizures. 2. NSTEMI 3. We will rule out orthostatic hypotension 4. Neck pain with the radiation to right upper extremity rule out cervical myelopathy 5. Symptomatic bradycardia, currently off of any AV zoe agents 6. Hypertension 7. Dyslipidemia -continue Plavix and statin, follow up Cardiology, avoid AV zoe agents -MRSA spine, Neurology consultation for questionable seizures Syncope and collapse NSTEMI, questionable type I Rule out structural heart disease Rule out orthostatic hypotension Rule out carotid artery stenosis ? Symptomatic bradycardia Severe CAD status post PCIs x3 MAZIN (on Plavix) Hypertension Dyslipidemia Plan/Recommendati Plan discussed with: Patient My Orders Orders - RENEE IRVIN MD Procedure Category Date Status Time * Neurology Consult CONS 09/24/24 Transmitted 16:08 Cervical Wo Contrast MRI 09/24/24 Taken 17:27 Date of Service: Sep 24, 2024 Billing Provider: RENEE IRVIN MD Common Visit Codes: NOT BILLABLE RENEE IRVIN MD Sep 24, 2024 18:39
--- NOTE | 2024-09-24 18:46 | DVH ---
EXAM: MRI CERVICAL WO CONTRAST CLINICAL HISTORY: RECENT FALL AND HEAD BRUISE COMPARISON: None TECHNIQUE: MRI imaging of the cervical spine was performed without intravenous contrast. FINDINGS: 7 cai-fpz-onompnb cervical type vertebra. Straightening of the cervical lordosis. Vertebral body hei ghts are maintained. No evidence of acute traumatic fractures or spondylolisthesis. No worrisome bone marrow signal. No abnormal cord signal. Partially visualized posterior fossa is unremarkable. C2-C3: No significant spinal canal stenosis. No significant neural foramina stenosis. C3-C4: Posterior disc osteophyte complex causing moderate spinal canal stenosis. Moderate bilateral n eural foramina stenosis from uncovertebral hypertrophy and facet osteoarthritis. C4-C5: Posterior disc osteophyte complex causing mild spinal canal stenosis. Moderate to severe left with moderate right-sided neural foramina stenosis from uncovertebral hypertrophy and facet osteoarth ritis. C5-C6: Posterior disc osteophyte complex causing mild spinal canal stenosis. Severe left left-greater -than-right neural foramina stenosis from uncovertebral hypertrophy and facet osteoarthritis. C6-C7: Posterior disc osteophyte complex causing mild spinal canal stenosis. Moderate bilateral neura l foramina stenosis from uncovertebral hypertrophy and facet osteoarthritis. C7-T1: Posterior disc bulge without significant spinal canal stenosis. Moderate to moderate left-grea cpp-vdqb-ygvng neural foramina stenosis. The paraspinal muscles are unremarkable. IMPRESSION: No evidence of acute traumatic fractures. Multilevel moderate to severe degenerative changes of the cervical spine as detailed above. Moderate spinal canal stenosis at C3-C4 Moderate bilateral neural foramina stenosis at C3-C4 with moderate to severe left and moderate right- sided neural foramina stenosis at C4-C5, severe bilateral neural foramina stenosis at C5-C6 and moder ate bilateral neural foramina stenosis at C6-C7 from uncovertebral hypertrophy and facet osteoarthrit is. Moderate eikh-fadaffn-ddwb-right neural foramina stenosis at C7-T1
--- NOTE | 2024-09-24 21:21 | DVHINCON2 ---
Date of service: Sep 24, [address] Andrade Reason for Consultation Recent fall, head bruise History of Present Illness Mr. Lopez is a 74 years old right-handed gentleman with a history of hypertension, coronary artery disease, COPD, obesity, the patient was came to the [facility] on 09/22/2024 with a chief company of fall and syncopal event. At this time, he is alert and fully oriented, but he does not remember everything happened to him, the following information is obtained from him and his On 09/16/2024, he remembers after feeling his cat in his kitchen, when he was getting up, he had dizziness/lightheadedness, quickly followed by passing out and felt down to the floor, he believes he only passed out for seconds, and he said he woke up with clear sensorium. But his relates that he heard "oh no", and found him on the floor nonresponsive, with shaking all over body with eyes rolling back for about 3 minutes with urinary incontinence, and the patient woke up right after the event was over with mild confusion On 09/22/2024, he remembers less in the cats in, but the next memory was waking up in the [facility] emergency room. He was relates the patient was was found on the floor, nonresponsive for 10 minutes, also noticed signs up apnea, he was confused after he woke up, and he was still confused when he was in the emergency room He has never had similar problem previously, he was no history of stroke or seizure disorder In the hospital, bradycardia with heart rate down to 45 minutes was noticed [phone]. [id number] Urinalysis, 09/22/2024: Unremarkable CBC, 09/24/2024: Unremarkable BMP, 09/24/2024: Unremarkable Vitamin B12, 09/23/2024: 227 TSH, 09/16/2024: 1.16 Echocardiogram, 09/23/2024: There is mild concentric left ventricular hypertrophy Left ventricular systolic function is preserved Ejection fraction is estimated at 55% There is biatrial enlargement There is no gross valvular pathology There is no pericardial effusion Carotid Doppler, 09/24/2024: Less than 50% stenosis of bilateral internal carotid artery systems based on peak systolic velocity criteria and presence of atheromatous plaque at the carotid artery bulbs MRI head, 09/23/2024: No acute infarct, intracranial hemorrhage, mass effect, or hydrocephalus MRI cervical spine, 09/23/2024: No evidence of acute traumatic fractures. Multilevel moderate to severe degenerative changes of the cervical spine as detailed above. Moderate spinal canal stenosis at C3-C4 Moderate bilateral neural foramina stenosis at C3-C4 with moderate to severe left and moderate right-sided neural foramina stenosis at C4-C5, severe bilateral neural foramina stenosis at C5-C6 and moderate bilateral neural foramina stenosis at C6-C7 from uncovertebral hypertrophy and facet osteoarthritis. Moderate zcon-sqefemp-kecz-right neural foramina stenosis at C7-T1 Past Medical History Hypertension, coronary artery disease, COPD Past Surgical History Angioplasty, stenting Family History: Cardiovascular disease G8 MOTHER G8 FATHER Cerebrovascular accident (CVA) G8 MOTHER, Onset:60 years & older FH: kidney failure G8 MOTHER Family History Diabetes, stroke, coronary artery disease, kidney failure on hemodialysis Social History He smokes tobacco, but no history of alcohol or recreational substance abuse Allergies: Coded Allergies: Iodine (Verified Allergy, Intermediate, HIVES, 01/01/21) Home Meds Reported Medications Tamsulosin Hcl (Tamsulosin Hcl) 0.4 Mg Cap, 1 CAP PO HS for 90 Days, #90 09/24/24 Atorvastatin Calcium (Lipitor) 10 Mg Tab, 1 TAB PO HS for 90 Days, #90 09/24/24 Atuqqvsblir-Xifykcliekgg-Ssilb (Trelegy Ellipta 200-62.5-25 Mcg/INH) 1 Aer Aer, 1 PUFF IN DAILY for 30 Days, #60 09/24/24 Hydrocodone-Acetaminophen (Hydrocodone/Acetaminophen 5-325 mg) 1 Tab Tab, 1 TAB PO DAILY PRN for 30 Days, #30 09/24/24 Clopidogrel Bisulfate (Plavix) 75 Mg Tab, 1 TAB PO QAM for CAD 01/01/21 Aspirin (Aspirin) 81 Mg Tab, 1 TAB PO QAM for CAD 01/01/21 Tizanidine Hydrochloride (Zanaflex) 4 Mg Cap, 1 CAP PO DAILY PRN for FOR MUSCLE SPASM 01/17/18 Nitroglycerin (NTROSTAT SUBLINGUAL) 0.4 Mg Sl, 1 TAB SL PRN PRN for FOR CHEST PAIN *MAY REPEAT EVERY 5 MINUTES X 3 TOTAL IF NO RELIEF, INITIATE ANALGESIC THERAPY. NOTIFY PHYSICIAN *Do not crush. 7/11/18 Ranitidine Hcl (Ranitidine Hcl) 150 Mg Cap, 1 CAP PO BID PRN for GERD 01/17/18 Discontinued Reported Medications Atorvastatin Calcium (Lipitor) 20 Mg Tab, 1 TAB PO QPM for HIGH CHOLESTEROL 01/01/21 Fluticasone Propionate (Nasal) (Allergy Relief) 50 Mcg/Act Spr, 1 SPRAY NA DAILY PRN for ALLERGIES 01/01/21 Review of Systems As above, the other systems are negative Vital Signs Vital Signs Date Time Temp Pulse Resp B/P (MAP) Pulse Ox O2 Delivery O2 Flow Rate FiO2 09/24/24 20:00 53 09/24/24 20:00 Room Air* 0 21 09/24/24 17:00 97.6 18 146/59 (88) 91 97.6 Physical Exam GENERAL EXAM: General: the patient is well developed and nourished. No acute distress. HEENT: Normocephalic except bruise, neck is supple, no carotid bruits. No mass. RESPIRATORY: Normal respiratory effort with symmetrical lung expansion. Lungs clear to auscultation. CARDIOVASCULAR: Regular rate and rhythm with no murmurs. S1, S2. ABDOMEN: Soft, nontender, normal bowel sound NEUROLOGICAL: MENTAL STATUS: Awake and alert. Oriented to person, place, time and general circumstances. Able to give personal history. SPEECH, LANGUAGE, HIGHER CORTICAL FUNCTION: no aphasia or dysathria. CRANIAL NERVES: #2: Intact visual lucio to confrontation. The optic discs were sharp. Retinal background was uniformly pink in appearance. There was no hemorrhages or exudates. #3,4,6: Pupils are equal, round and reactive. EOMs full and conjugate. Mild bilateral gaze evoked nystagmus. #5: Facial sensation intact in all three divisions bilaterally. Mandibular strength intact. #7: Facial muscles symmetrical and strength intact. #8: Hearing grossly normal to voice. #9,10: Uvula and soft palate rise in the midline. Swallow and voice are normal. #11: Trapezius and sternomastoid strength intact bilaterally. #12: Tongue midline. No fasciculations or atrophy. SENSATION: Sensation to touch and pinprick is normal. MOTOR: Normal tone in the upper and lower extremity. Normal muscle bulk. No fasciculations. No abnormal movements or posturing. Muscle strength of the major groups in the upper extremities is 5/5. Muscle strength of the major groups in the lower extremities is 5/5. REFLEXES: Deep tendon reflexes normal and symmetrical. No pathological reflexes. CEREBELLAR/COORDINATION: Finger to nose and heel to sears are normal bilaterally. GAIT/STATION: Unremarkable. Labs/Diagnostic Data Labs Test 09/24/24 07:38 09/23/24 14:19 09/23/24 04:03 09/22/24 22:14 Range/Units White Blood Count 7.8 4.4-10.8 10^3/uL Red Blood Count 4.95 4.5-5.90 10^6/uL Hemoglobin 14.5 13.5-17.5 g/dL Hematocrit 41.4 41.0-53.0 % Mean Corpuscular Volume 83.6 80.0-100.0 fL Mean Corpuscular Hemoglobin 29.3 28.0-32.0 pg Mean Corpuscular Hemoglobin Concent 35.0 32.0-36.0 g/dL Red Cell Distribution Width 13.7 11.8-14.3 % Platelet Count 156 140-450 10^3/uL Mean Platelet Volume 7.4 6.9-10.8 fL Neutrophils (%) (Auto) 72.8 37.0-80.0 % Lymphocytes (%) (Auto) 16.7 10.0-50.0 % Monocytes (%) (Auto) 6.6 0.0-12.0 % Eosinophils (%) (Auto) 2.7 0.0-7.0 % Basophils (%) (Auto) 1.2 0.0-2.0 % Neutrophils # (Auto) 5.7 1.6-8.6 10 ^3/uL Lymphocytes # (Auto) 1.3 0.4-5.4 10 ^3/uL Monocytes # (Auto) 0.5 0-1.3 10 ^3/uL Eosinophils # (Auto) 0.2 0-0.8 10 ^3/uL Basophils # (Auto) 0.1 0-0.2 10 ^3/uL Nucleated Red Blood Cells 0.1 % Sodium Level 139 136-145 mmol/L Potassium Level 4.3 3.5-5.1 mmol/L Chloride Level 106 98-107 mmol/L Carbon Dioxide Level 26 20-31 mmol/L Anion Gap 7 5-15 Blood Urea Nitrogen 13 9-23 mg/dL Creatinine 1.13 0.700-1.30 mg/dL Glomerular Filtration Rate Calc 69 >90 mL/min BUN/Creatinine Ratio 11.5 10.0-20.0 Serum Glucose 140 H 74-106 mg/dL Calcium Level 9.7 8.7-10.4 mg/dL Troponin I High Sensitivity 49 </=54 ng/L Vitamin B12 Level 227 211-911 pg/mL Thyroid Stimulating Hormone (TSH) 1.99 0.55-4.78 uIU/mL Urine Color Light-yellow Yellow Urine Clarity Clear Clear Urine pH 6.0 5.0-9.0 Urine Specific [place] 1.014 1.001-1.035 Urine Protein 1+ H Negative Urine Ketones Negative Negative Urine Blood Negative Negative /uL Urine Nitrite Negative Negative Urine Bilirubin Negative Negative Urine Urobilinogen Normal Negative mg/dL Urine Leukocyte Esterase Negative Negative /uL Urine RBC 1 0 - 3 /hpf Urine Microscopic WBC < 1 0-3 /HPF Urine Squamous Epithelial Cells None seen <5 /hpf Urine Bacteria None seen None Seen /hpf Urine Glucose Normal Normal mg/dL Test 09/22/24 19:18 Range/Units Prothrombin Time 11.0 9.3-11.8 sec Prothrombin Time INR 1.04 0.9-1.15 Activated Partial Thromboplast Time 25.2 24.5-34.5 SEC Lactic Acid Level 1.9 0.4-2.0 mmol/L B-Type Natriuretic Peptide 33.36 0-100 pg/mL Assessment Recurrent syncopal event ? Secondary to bradycardia, Seizure-like activity during the 1st passing out Likely convulsive syncope Rule out seizure, less likely Plan/Recommendation Monitoring Supportive treatment Telemetry EEG Aspirin 81 mg daily Lipitor 40 mg daily GI prophylax/Pepcid DVT prophylax/Lovenox Cardiology on case Syncope precautions discussed I have discussed with he was only his about driving restriction DMV report in the chart Plan discussed with: Patient, Spouse, Other VAL HIGHTOWER MD Sep 24, 2024 21:21
[2024-09-25] VITALS (7 sets, daily range): BP systolic 125–149; BP diastolic 58–81; PULSE 49–56; RESP 16–19; TEMP 97.3–97.9; O2SAT 94–96
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
--- NOTE | 2024-09-25 12:49 | ECG ---
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
--- NOTE | 2024-09-25 15:22 | DVHDS2 ---
Discharge Summary Date of Admission Sep 22, 2024 at 21:52 Date of Discharge: Sep 25, 2024 Labs/Diagnostic Data: Laboratory Results Test 09/24/24 07:38 09/23/24 14:19 09/23/24 04:03 09/22/24 22:14 White Blood Count 7.8 10^3/uL (4.4-10.8) Red Blood Count 4.95 10^6/uL (4.5-5.90) Hemoglobin 14.5 g/dL (13.5-17.5) Hematocrit 41.4 % (41.0-53.0) Mean Corpuscular Volume 83.6 fL (80.0-100.0) Mean Corpuscular Hemoglobin 29.3 pg (28.0-32.0) Mean Corpuscular Hemoglobin Concent 35.0 g/dL (32.0-36.0) Red Cell Distribution Width 13.7 % (11.8-14.3) Platelet Count 156 10^3/uL (140-450) Mean Platelet Volume 7.4 fL (6.9-10.8) Neutrophils (%) (Auto) 72.8 % (37.0-80.0) Lymphocytes (%) (Auto) 16.7 % (10.0-50.0) Monocytes (%) (Auto) 6.6 % (0.0-12.0) Eosinophils (%) (Auto) 2.7 % (0.0-7.0) Basophils (%) (Auto) 1.2 % (0.0-2.0) Neutrophils # (Auto) 5.7 10 ^3/uL (1.6-8.6) Lymphocytes # (Auto) 1.3 10 ^3/uL (0.4-5.4) Monocytes # (Auto) 0.5 10 ^3/uL (0-1.3) Eosinophils # (Auto) 0.2 10 ^3/uL (0-0.8) Basophils # (Auto) 0.1 10 ^3/uL (0-0.2) Nucleated Red Blood Cells 0.1 % Sodium Level 139 mmol/L (136-145) Potassium Level 4.3 mmol/L (3.5-5.1) Chloride Level 106 mmol/L (98-107) Carbon Dioxide Level 26 mmol/L (20-31) Anion Gap 7 (5-15) Blood Urea Nitrogen 13 mg/dL (9-23) Creatinine 1.13 mg/dL (0.700-1.30) Glomerular Filtration Rate Calc 69 mL/min (>90) BUN/Creatinine Ratio 11.5 (10.0-20.0) Serum Glucose 140 mg/dL (74-106) Calcium Level 9.7 mg/dL (8.7-10.4) Troponin I High Sensitivity 49 ng/L (</=54) Vitamin B12 Level 227 pg/mL (211-911) Thyroid Stimulating Hormone (TSH) 1.99 uIU/mL (0.55-4.78) Urine Color Light-yellow (Yellow) Urine Clarity Clear (Clear) Urine pH 6.0 (5.0-9.0) Urine Specific [place] 1.014 (1.001-1.035) Urine Protein 1+ (Negative) Urine Ketones Negative (Negative) Urine Blood Negative /uL (Negative) Urine Nitrite Negative (Negative) Urine Bilirubin Negative (Negative) Urine Urobilinogen Normal mg/dL (Negative) Urine Leukocyte Esterase Negative /uL (Negative) Urine RBC 1 /hpf (0 - 3) Urine Microscopic WBC < 1 /HPF (0-3) Urine Squamous Epithelial Cells None seen /hpf (<5) Urine Bacteria None seen /hpf (None Seen) Urine Glucose Normal mg/dL (Normal) Test 09/22/24 19:18 Prothrombin Time 11.0 sec (9.3-11.8) Prothrombin Time INR 1.04 (0.9-1.15) Activated Partial Thromboplast Time 25.2 SEC (24.5-34.5) Lactic Acid Level 1.9 mmol/L (0.4-2.0) B-Type Natriuretic Peptide 33.36 pg/mL (0-100) Other Laboratory Tests 09/24/24 07:38 Brief Hx & Hospital Course: 74-year-old male with known history of coronary artery disease status post PCI with 3 stents, hypertension, dyslipidemia who presented to the hospital with syncope as well as questionable seizure found to have syncope suspected secondary to symptomatic bradycardia. Patient was seen by Cardiology and recommended to have event monitoring as an outpatient. Patient was found to have mildly elevated troponin, continue aspirin Plavix and statin. Patient was found to have neck pain with radiation right upper extremity found to have cervical stenosis at C4/5, spine surgery cleared the patient was to be discharged. Patient was recommended not to use any AV node opinion use including beta-nolvia. Patient was being discharged under stable condition with the home health home safety evaluation. Condition at Discharge: Stable Final Diagnosis/Problems List 74-year-old male with known history of coronary artery disease status post PCI with 3 stents, hypertension, dyslipidemia who presented to the hospital with syncope as well as questionable seizure found to have 1. Syncope and collapse rule out seizures. 2. NSTEMI 3. We will rule out orthostatic hypotension 4. Neck pain with the radiation to right upper extremity rule out cervical myelopathy 5. Symptomatic bradycardia, currently off of any AV zoe agents 6. Hypertension 7. Dyslipidemia -continue Plavix and statin, Discharge Disposition: Home with Health Services SNF Discharge Will this Physician continue t: No Discharge Instruct/Medications Diet: Cardiac 2g Na,low cholest Activity: See Comment Activity comment: No driving, no signing of legal documents, no planning on heavy machinery while on narcotics Follow Up/Referral: Follow up with the PCP in one week Please outpatient event monitoring and follow up with the Cardiology Follow up with the Neurology has been as spine surgery as an outpatient Medications: Resume home medications, no beta-nolvia Discharge Statement: "Patient was advised to return to the ER or call 911 if any headaches, dizziness, shortness of breath, chest pain, abdominal pain, bleeding, fevers, or worsening of medical condition. Patient was counseled about treatment plan, medications, possible side effects, patientverbalized understanding. All questions were answered to the best of my ability. This discharge took greater then 30 minutes in planning, reviewing documentation, counseling the patient, and discussing with other team members." ASSESSMENT ASSESSMENT Assessment 74-year-old male with known history of coronary artery disease status post PCI with 3 stents, hypertension, dyslipidemia who presented to the hospital with syncope as well as questionable seizure found to have 1. Syncope and collapse rule out seizures. 2. NSTEMI 3. We will rule out orthostatic hypotension 4. Neck pain with the radiation to right upper extremity rule out cervical myelopathy 5. Symptomatic bradycardia, currently off of any AV zoe agents 6. Hypertension 7. Dyslipidemia -continue Plavix and statin, Date of Service: Sep 25, 2024 Billing Provider: RENEE IRVIN MD Common Visit Codes: NOT BILLABLE RENEE IRVIN MD Sep 25, 2024 15:22
--- NOTE | 2024-09-26 06:44 | DVHPN ---
DATE: 09/25/2024 SUBJECTIVE: The patient denies any recurrent dizziness or syncope. He is complaining of neck and right upper extremity pain which he attributes to his fall due to syncope. Tele monitor shows episodes of sinus bradycardia in the 50s and upper 40s. No AV blocks. The patient is denying any chest pain or shortness of breath. OBJECTIVE: GENERAL: He is alert and awake, in no form of cardiopulmonary distress. VITAL SIGNS: Blood pressure 130/50, pulse per minute, saturation . HEENT: No carotid bruits. No jugular venous distention. CHEST: Bilateral air entry. CARDIOVASCULAR: palpable. Normal S1 and S2. EXTREMITIES: No peripheral edema. ASSESSMENT: * Recurrent syncope. * Sinus bradycardia. * History of coronary artery disease status post angioplasty. * History of hypertension. RECOMMENDATIONS: * Myocardial perfusion scan did not show any significant perfusion defect. No indication for further ischemia workup at this point. * Avoid zoe blocking agents. * Neuro evaluation in progress. * The patient would need long-term event recorder upon discharge to document if there is any correlation between his syncopal episodes and bradyarrhythmia. * We will monitor electrolytes closely. * Follow up with me in one to two weeks upon discharge. MD IVANA Gonzalez/BRADLEY/MARY TID: [id number] RECEIPT: [id number]
--- NOTE | 2024-09-26 10:52 | ECG ---
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
== END 2024-09-25 18:20 | disposition home or self-care (01) | DRG 280 ==
LOC: ER 19:06 → EDBD 19:06 → OVERFLOW 21:52 → TELE-CENTR 09-23 19:05
PROVIDERS: ADMIT Nurse Practitioner Family; ATTEND Nurse Practitioner Family
DX: I21.4 Non-ST elevation (NSTEMI) myocardial infarction (principal); G93.41 Metabolic encephalopathy; I95.1 Orthostatic hypotension; R56.9 Unspecified convulsions; M48.02 Spinal stenosis, cervical region; R00.1 Bradycardia, unspecified; J44.9 Chronic obstructive pulmonary disease, unspecified; E78.5 Hyperlipidemia, unspecified; F17.210 Nicotine dependence, cigarettes, uncomplicated; I25.10 Atherosclerotic heart disease of native coronary artery without angina pectoris; F17.200 Nicotine dependence, unspecified, uncomplicated; R32 Unspecified urinary incontinence; M48.03 Spinal stenosis, cervicothoracic region; M25.511 Pain in right shoulder; E66.9 Obesity, unspecified; I44.0 Atrioventricular block, first degree; I45.10 Unspecified right bundle-branch block; N40.0 Benign prostatic hyperplasia without lower urinary tract symptoms; M47.812 Spondylosis without myelopathy or radiculopathy, cervical region; Z91.041 Radiographic dye allergy status; Z79.899 Other long term (current) drug therapy; Z79.82 Long term (current) use of aspirin; Z79.891 Long term (current) use of opiate analgesic; Z71.6 Tobacco abuse counseling; Z98.61 Coronary angioplasty status; Z86.73 Personal history of transient ischemic attack (TIA), and cerebral infarction without residual deficits; Z84.1 Family history of disorders of kidney and ureter; Z82.49 Family history of ischemic heart disease and other diseases of the circulatory system; Z82.3 Family history of stroke; Z83.3 Family history of diabetes mellitus; Z79.02 Long term (current) use of antithrombotics/antiplatelets; Z68.30 Body mass index [BMI] 30.0-30.9, adult
CPT/HCPCS: 36415; 70450; 70551; 71045; 72141; 73060; 73090; 78452; 80048; 81001; 82607; 83605; 83880; 84443; 84484; 85025; 85610; 85730; 93005; 93017; 93306; 93886; 99291; G0378; J2405

== ENCOUNTER 2025-05-16 12:44 | Inpatient (IN) | payer MEDICARE, OTHER ==
[~2025-05-16] VITALS: Ht 177.8 cm; Wt 96.5 kg
[2025-05-16 00:59] VITALS: PULSE 50
[~2025-05-16 12:44] MED LIST changes: -ATOR20TA PO; -FLUT50SP28; -HYDR-392 PO
[2025-05-16 13:30] VITALS: PULSE 53; RESP 14; O2SAT 97
[2025-05-16 15:40] LABS: Hematocrit 45.4 % (41.0-53.0); Hemoglobin 15.9 g/dL (13.5-17.5); Mean Corpuscular Hemoglobin 29.6 pg (28.0-32.0); Mean Corpuscular Volume 84.5 fL (80.0-100.0); Nucleated Red Blood Cells % 0.0 %
[2025-05-16 15:46] LABS: Chloride 105 mmol/L (98-107); Potassium 4.7 mmol/L (3.5-5.1); Sodium 139 mmol/L (136-145)
[2025-05-16 15:47] LABS: Anion Gap 7 (5-15); Calcium 9.4 mg/dL (8.7-10.4); Carbon Dioxide 27 mmol/L (20-31)
[2025-05-16 15:52] LABS: BUN/Creatinine Ratio 12.6 (10.0-20.0); Blood Urea Nitrogen 14 mg/dL (9-23)
[2025-05-16 15:55] LABS: Glucose 129 mg/dL (74-106)
--- NOTE | 2025-05-16 16:37 | ED.PDOC ---
History of Present Illness HPI Comments Mr. Lopez is a 74-year-old male with prior medical history of angina, ND status post PCI with 3 drug-eluting stents, hyperlipidemia, and disorder, presents today with chief complaint of a seizure. 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 Per his at bedside, she witnessed him have a tonic-clonic seizure lasted approximately 1 minute associated with urinary incontinence with subsequent minor confusion. Patient states that in the last week felt well except for some occasional nausea, he denies chest pain, headache, vomiting, abdominal pain, diarrhea, dysuria, hematuria, and palpitations. However, his states that he has, "been off," for the last week, but is unable to specify. Per the , the patient began having seizures in September 2024 and is currently on Keppra 750 mg PO BID. He was seen here on 09/16 and 09/22 of this year where he presented under similar circumstances and was discharged with diagnosis of symptomatic bradycardia. On initial evaluation, the patient seems well, AOx4, is bradycardic, other vitals are stable, without overt signs of distress. Chief Complaint: Seizure Time Seen by MD: 14:16 Allergies: Coded Allergies: Iodine (Verified Allergy, Intermediate, HIVES, 01/01/21) Home Meds Reported Medications Levetiracetam (Levetiracetam) 750 Mg Tab, 1 TAB PO BID 05/17/25 Tamsulosin Hcl (Tamsulosin Hcl) 0.4 Mg Cap, 1 CAP PO HS for 90 Days, #90 09/24/24 Atorvastatin Calcium (Lipitor) 10 Mg Tab, 1 TAB PO HS for 90 Days, #90 09/24/24 Yyzstnitgja-Xrckcwtnmczy-Pbcny (Trelegy Ellipta 200-62.5-25 Mcg/INH) 1 Aer Aer, 1 PUFF IN DAILY for 30 Days, #60 09/24/24 Hydrocodone-Acetaminophen (Hydrocodone/Acetaminophen 5-325 mg) 1 Tab Tab, 1 TAB PO DAILY PRN for 30 Days, #30 09/24/24 Clopidogrel Bisulfate (Plavix) 75 Mg Tab, 1 TAB PO QAM for CAD 01/01/21 Aspirin (Aspirin) 81 Mg Tab, 1 TAB PO QAM for CAD 01/01/21 Tizanidine Hydrochloride (Zanaflex) 4 Mg Cap, 1 CAP PO DAILY PRN for FOR MUSCLE SPASM 01/17/18 Nitroglycerin (NTROSTAT SUBLINGUAL) 0.4 Mg Sl, 1 TAB SL PRN PRN for FOR CHEST PAIN *MAY REPEAT EVERY 5 MINUTES X 3 TOTAL IF NO RELIEF, INITIATE ANALGESIC THERAPY. NOTIFY PHYSICIAN *Do not crush. 01/17/18 Ranitidine Hcl (Ranitidine Hcl) 150 Mg Cap, 1 CAP PO BID PRN for GERD 01/17/18 Information Source: Patient, Spouse Mode of Arrival: EMS Severity: Mild Timing: Hours Duration: Minutes Past Medical History PAST MEDICAL HISTORY: Angina, CAD, High Lipids, HTN Surgical History: PTCA Family History Family History: Reviewed,noncontributory to illness, Family hx of heart nancy Social History Smoker: Less Than 1 Pack/Day (Has smoked half a pack of cigarettes of 57 years) Alcohol: Denies ETOH Use Drugs: Denies Drug Use Lives In: Home Constitutional: denies: chills, diaphoresis, fatigue, fever, malaise, sweats, weakness EENTM: denies: blurred vision, double vision, nasal discharge, nose congestion, photophobia Respiratory: denies: cough, hemoptysis, orthopnea, SOB at rest, SOB with excertion Cardiovascular: reports: dizzy spells; denies: chest pain, diaphoresis, Dyspnea on exertion, edema, irregular heart beat, left arm pain, lightheadedness, palpitations, syncope Gastrointestinal: denies: abdomen distended, abdominal pain, blood streaked bowels, constipated, diarrhea, difficulty swallowing, hematemesis, melena, nausea, poor appetite, poor fluid intake, vomiting Genitourinary: denies: burning, dysuria, flank pain, frequency, hematuria, incontinence, pain, urgency Neurological: reports: dizziness, seizure; denies: fainting, headache, numbness, paresthesia, pre-existing deficit, weakness Musculoskeletal: denies: back pain, joint pain, joint swelling, muscle pain, muscle stiffness, neck pain Physical Exam General Appearance: Normal HEENT: Normal ENT Inspection, PERRL/EOMI, Pharynx Normal Neck: Full Range of Motion, Non-Tender, Normal Inspection Respiratory: Chest Non-Tender, Lungs Clear, No Accessory Muscle Use, No Respiratory Distress, Normal Breath Sounds Cardiovascular: No Edema, Normal Peripheral Pulses, Regular Rate/Rhythm Breast Exam: Deferred Gastrointestinal: Non Tender, Normal Bowel Sounds, Soft Genitalia: Deferred Pelvic: Deferred Rectal: Deferred Extremities: Normal capillary refill, Normal inspection, Normal range of motion, Non-tender, No pedal edema Neurologic: Alert, Normal Affect, Normal Mood Cerebellar Function: Normal Reflexes: NOT DONE Skin: Normal Color Peripheral Pulses: 3+ dorsalis pedis (R), 3+ dorsalis pedis (L) Lymphatic: Other (No cervical adenopathy ) Was a procedure done? Was a procedure done?: No Differential Dx Considerations may include: Seizure, Epilepsy, psychogenic seizures, symptomatic bradycardia, AV block, medication non compliance X-Ray, Labs, Meds, VS Vital Signs Date Time Temp Pulse Resp B/P (MAP) Pulse Ox O2 Delivery O2 Flow Rate FiO2 05/16/25 18:01 53 15 117/60 (79) 95 05/16/25 16:01 48 16 123/63 (83) 95 05/16/25 14:00 98.3 44 14 127/61 (83) 96 98.3 05/16/25 13:30 53 14 97 Room Air* 0 21 05/16/25 13:13 56 18 114/60 (78) 95 05/16/25 12:47 98.0 54 22 138/75 100 98.0 05/16/25 00:59 50 Lab Test 05/16/25 15:24 05/16/25 13:19 05/16/25 05:29 Range/Units White Blood Count 9.7 4.4-10.8 10^3/uL Red Blood Count 5.38 4.5-5.90 10^6/uL Hemoglobin 15.9 13.5-17.5 g/dL Hematocrit 45.4 41.0-53.0 % Mean Corpuscular Volume 84.5 80.0-100.0 fL Mean Corpuscular Hemoglobin 29.6 28.0-32.0 pg Mean Corpuscular Hemoglobin Concent 35.1 32.0-36.0 g/dL Red Cell Distribution Width 13.5 11.8-14.3 % Platelet Count 170 140-450 10^3/uL Mean Platelet Volume 7.5 6.9-10.8 fL Neutrophils (%) (Auto) 81.8 H 37.0-80.0 % Lymphocytes (%) (Auto) 11.4 10.0-50.0 % Monocytes (%) (Auto) 5.4 0.0-12.0 % Eosinophils (%) (Auto) 0.9 0.0-7.0 % Basophils (%) (Auto) 0.5 0.0-2.0 % Neutrophils # (Auto) 7.9 1.6-8.6 10 ^3/uL Lymphocytes # (Auto) 1.1 0.4-5.4 10 ^3/uL Monocytes # (Auto) 0.5 0-1.3 10 ^3/uL Eosinophils # (Auto) 0.1 0-0.8 10 ^3/uL Basophils # (Auto) 0 0-0.2 10 ^3/uL Nucleated Red Blood Cells 0.0 % Sodium Level 139 136-145 mmol/L Potassium Level 4.7 3.5-5.1 mmol/L Chloride Level 105 98-107 mmol/L Carbon Dioxide Level 27 20-31 mmol/L Anion Gap 7 5-15 Blood Urea Nitrogen 14 9-23 mg/dL Creatinine 1.11 0.700-1.30 mg/dL Glomerular Filtration Rate Calc 71 >90 mL/min BUN/Creatinine Ratio 12.6 10.0-20.0 Serum Glucose 129 H 74-106 mg/dL Calcium Level 9.4 8.7-10.4 mg/dL POC Glucose 104 70-106 mg/dl Urine Color Yellow Yellow Urine Clarity Clear Clear Urine pH 5.5 5.0-9.0 Urine Specific [place] 1.025 1.001-1.035 Urine Protein 1+ H Negative Urine Ketones Negative Negative Urine Blood Negative Negative /uL Urine Nitrite Negative Negative Urine Bilirubin Negative Negative Urine Urobilinogen Normal Negative mg/dL Urine Leukocyte Esterase Negative Negative /uL Urine RBC 5 0 - 3 /hpf Urine Microscopic WBC 1 0-3 /HPF Urine Squamous Epithelial Cells Few <5 /hpf Urine Calcium Oxalate Crystals Few None Seen Urine Bacteria Few H None Seen /hpf Urine Mucus Few None Seen Urine Glucose Normal Normal mg/dL Dr. Young: Patient personally seen and evaluated by myself. At this time agree finding and assessment by Dr. Gomez. Patient's assessment and plan has been created by myself along with Dr. Gomez Time of 1ST Reevaluation: 16:30 Reevaluation 1ST: Unchanged Patient Education/Counseling: Diagnosis, Treatment Family Education/Counseling: Diagnosis, Treatment Comments The patient presented today via EMS due to a witnessed tonic clonic seizure On initial evaluation, the patient seems well, AOx4, bradycardic, other vitals are stable Physical exam without positive findings CBC, BMP, and UA are without significant findings Head CT without acute intracranial findings EKG is pending The patient will be admitted for further work up and evaluation by neurology SEPSIS Sepsis Screen Date sepsis recognized/suspect: May 16, 2025 Time Sepsis recognized/suspect: 125 Recent Procedure: No On Antibiotic Therapy: No Respiratory Rate >20: No Heart Rate >90: No Temp<36 C (96.8 F) or >38.3 C: No SBP <90 or MAP <65 mmHG: No New Acute Mental Status Change: No Is the patient on CPAP, BIPAP,: No Physician Orders Head Without Contrast (05/16/25 15:45) Electrocardigram (05/16/25 15:45) Vital Signs Date Time Temp Pulse Resp B/P (MAP) Pulse Ox O2 Delivery O2 Flow Rate FiO2 05/16/25 18:01 53 15 117/60 (79) 95 05/16/25 16:01 48 16 123/63 (83) 95 05/16/25 14:00 98.3 44 14 127/61 (83) 96 98.3 05/16/25 13:30 53 14 97 Room Air* 0 21 05/16/25 13:13 56 18 114/60 (78) 95 05/16/25 12:47 98.0 54 22 138/75 100 98.0 05/16/25 00:59 50 Laboratory Tests Test 05/16/25 15:24 White Blood Count 9.7 10^3/uL (4.4-10.8) Departure 1 Departure Time of Disposition: 17:00 Impression: Primary Impression: Seizure Disposition: 30 STILL A PATIENT Admit to: Tele Condition: Stable Critical Care Note Critical Care Time?: Yes (35 min-critical care time only) Stability Stability form required: No LLUVIA GOMEZ May 16, 2025 16:37 COTY YOUNG MD May 17, 2025 18:02
--- NOTE | 2025-05-16 17:07 | DVH ---
EXAM DESCRIPTION: CT HEAD WITHOUT CONTRAST CLINICAL HISTORY: Seizure COMPARISON: MRI BRAIN HEAD WO CONTRAST on DOS: 09/23/24, CT HEAD WITHOUT CONTRAST on DOS: 09/22/24, MRI BRAIN HEAD WO CONTRAST on DOS: 09/16/24, CT HEAD WITHOUT CONTRAST on DOS: 09/16/24 TECHNIQUE: Noncontrast CT head was performed. Coronal MPR images were generated. CTDI/ DLP = 53.43 / 965.08. Dose reduction technique with one or more of the following methods was performed: Automated exposure control, adjustment of the mA and/or kV according to patient size, use of iterative reconstruction technique. FINDINGS: No evidence of acute intracranial hemorrhage. No mass effect. No extra-axial collections of fluid or blood. The brain is normal in attenuation. Mildly enlarged ventricles and sulci, suggesting mild global volume loss. Clear basal cisterns. The calvarium is intact. The soft tissues are unremarkable. The paranasal sinuses and mastoid air cells are clear. IMPRESSION: 1. No acute intracranial findings.
[2025-05-16] MEDS ORDERED: NITROGLYCERIN 0.4 MG SL TAB SL PRN (18:30)
[2025-05-16] MEDS ORDERED: MORPHINE SULFATE INJ 2 MG/ml SYRG IV PRN (18:30)
[2025-05-16] MEDS ORDERED: LORazepam 2MG/ML-1ML VIAL IV PRN (18:30)
[2025-05-16 18:46] LABS: Urine Protein, UAD 1+ (Negative)
[2025-05-16 19:30] VITALS: PULSE 44; RESP 12; O2SAT 95
--- NOTE | 2025-05-16 23:14 | DVHINCON2 ---
Date of service: May 16, [address] Andrade Reason for Consultation Seizure History of Present Illness Mr. Lopez is a 74 years old right-handed gentleman with a history of hypertension, coronary artery disease, COPD, obesity, the patient was came to the [facility] on 05/16/2025 with a chief complaint of seizure activity. At this time, he is alert and fully oriented, but he does not remember everything happened to him, the following information is obtained from him and his I saw him on 09/24/2024 for recurrent falls Before he came to the hospital, when he was picking up his cat, he dropped it and he came down to his hand and knee and then become nonresponsive, with mild shaking all over the body, difficulty with respiration. The shaking lasts for about 1 minute, and he woke up in 3-4 minutes confused, but was able to recognize his and the place, he had urinary incontinence during this event The following information was obtained on 09/24/2024, and confirmed by his on 05/16/2025 On 09/16/2024, he remembers after feeding his cat in his kitchen, when he was getting up, he had dizziness/lightheadedness, quickly followed by passing out and falling down to the floor, he believed he only passed out for seconds, and he said he woke up with clear sensorium. But his related that she heard "oh no", and found him on the floor nonresponsive, with mild shaking all over body with eyes rolling back for about 3 minutes with urinary incontinence, and the patient woke up right after the event was over with mild confusion On 09/22/2024, he remembers let the cat in, but the next memory was waking up in the [facility] emergency room. His related the patient was was found on the floor, nonresponsive for 10 minutes, noticed signs of apnea, he was confused after he woke up, and he was still confused when he was in the emergency room, but related on 05/16/2025, that the patient is able to recognize her on waking up On 10/02/2024, when he came to the kitchen asking if he could help his , he passed out, fell down, with mother shaking all over body, and the urinary incontinence, again on waking up, he was able to recognize his and the place In 09/2024,, bradycardia with heart rate down to 45 minutes was noticed On 05/16/2025, bradycardia with heart rate in the low 40s and 50s noticed The patient's has been on Keppra since the end of 09/2024, the current dosage was 750mg b.i.d. Urinalysis, 05/16/25: Unremarkable CBC, 05/16/2025: Unremarkable BMP, 05/16/2025: Unremarkable Vitamin B12, 09/23/2024: 227 TSH, 09/16/2024: 1.16 CT head, 05/16/2025: No acute intracranial findings MRI head, 09/23/2024: No acute infarct, intracranial hemorrhage, mass effect, or hydrocephalus Past Medical History Hypertension, coronary artery disease, COPD Past Surgical History Angioplasty, stenting Family History: Cardiovascular disease G8 MOTHER G8 FATHER Cerebrovascular accident (CVA) G8 MOTHER, Onset:60 years & older FH: kidney failure G8 MOTHER Family History Diabetes, stroke, coronary artery disease, kidney failure on hemodialysis Social History He smokes tobacco, but no history of alcohol or recreational substance abuse Allergies: Coded Allergies: Iodine (Verified Allergy, Intermediate, HIVES, 01/01/21) Home Meds Reported Medications Tamsulosin Hcl (Tamsulosin Hcl) 0.4 Mg Cap, 1 CAP PO HS for 90 Days, #90 09/24/24 Atorvastatin Calcium (Lipitor) 10 Mg Tab, 1 TAB PO HS for 90 Days, #90 09/24/24 Tycikbpyyxs-Byedxztbbfue-Aprrl (Trelegy Ellipta 200-62.5-25 Mcg/INH) 1 Aer Aer, 1 PUFF IN DAILY for 30 Days, #60 09/24/24 Hydrocodone-Acetaminophen (Hydrocodone/Acetaminophen 5-325 mg) 1 Tab Tab, 1 TAB PO DAILY PRN for 30 Days, #30 09/24/24 Clopidogrel Bisulfate (Plavix) 75 Mg Tab, 1 TAB PO QAM for CAD 01/01/21 Aspirin (Aspirin) 81 Mg Tab, 1 TAB PO QAM for CAD 01/01/21 Tizanidine Hydrochloride (Zanaflex) 4 Mg Cap, 1 CAP PO DAILY PRN for FOR MUSCLE SPASM 01/17/18 Nitroglycerin (NTROSTAT SUBLINGUAL) 0.4 Mg Sl, 1 TAB SL PRN PRN for FOR CHEST PAIN *MAY REPEAT EVERY 5 MINUTES X 3 TOTAL IF NO RELIEF, INITIATE ANALGESIC THERAPY. NOTIFY PHYSICIAN *Do not crush. 01/17/18 Ranitidine Hcl (Ranitidine Hcl) 150 Mg Cap, 1 CAP PO BID PRN for GERD 01/17/18 Current Medications Current Medications Medications (Trade) Dose Ordered Sig/Fidelia Route PRN Reason Start Time Stop Time Status Last Admin Nitroglycerin (Ntrostat Sublingual) 0.4 mg Q5MINP PRN SL FOR CHEST PAIN 05/16/25 18:30 Morphine Sulfate 2 mg Q30M PRN IV FOR CHEST PAIN 05/16/25 18:30 Lorazepam (Ativan Inj) 1 mg Q2HP PRN IV SEIZURES 05/16/25 18:30 Review of Systems As above, the other systems are negative Vital Signs Vital Signs Date Time Temp Pulse Resp B/P (MAP) Pulse Ox O2 Delivery O2 Flow Rate FiO2 05/16/25 19:30 98.3 44 12 120/62 (81) 95 98.3 05/16/25 19:30 Room Air* 0 N/A Oxymizer Physical Exam GENERAL EXAM: General: the patient is well developed and nourished. No acute distress. HEENT: Normocephalic except bruise, neck is supple, no carotid bruits. No mass. RESPIRATORY: Normal respiratory effort with symmetrical lung expansion. Lungs clear to auscultation. CARDIOVASCULAR: Regular rate and rhythm with no murmurs. S1, S2. ABDOMEN: Soft, nontender, normal bowel sound NEUROLOGICAL: MENTAL STATUS: Awake and alert. Oriented to person, place, time and general circumstances. Able to give personal history. SPEECH, LANGUAGE, HIGHER CORTICAL FUNCTION: no aphasia or dysathria. CRANIAL NERVES: #2: Intact visual lucio to confrontation. The optic discs were sharp. Retinal background was uniformly pink in appearance. There was no hemorrhages or exudates. #3,4,6: Pupils are equal, round and reactive. EOMs full and conjugate. Mild bilateral gaze evoked nystagmus. #5: Facial sensation intact in all three divisions bilaterally. Mandibular strength intact. #7: Facial muscles symmetrical and strength intact. #8: Hearing grossly normal to voice. #9,10: Uvula and soft palate rise in the midline. Swallow and voice are normal. #11: Trapezius and sternomastoid strength intact bilaterally. #12: Tongue midline. No fasciculations or atrophy. SENSATION: Sensation to touch and pinprick is normal. MOTOR: Normal tone in the upper and lower extremity. Normal muscle bulk. No fasciculations. No abnormal movements or posturing. Muscle strength of the major groups in the upper extremities is 5/5. Muscle strength of the major groups in the lower extremities is 5/5. REFLEXES: Deep tendon reflexes normal and symmetrical. No pathological reflexes. CEREBELLAR/COORDINATION: Finger to nose and heel to sears are normal bilaterally. GAIT/STATION: Unremarkable. Labs/Diagnostic Data Labs Test 05/16/25 15:24 05/16/25 13:19 05/16/25 05:29 Range/Units White Blood Count 9.7 4.4-10.8 10^3/uL Red Blood Count 5.38 4.5-5.90 10^6/uL Hemoglobin 15.9 13.5-17.5 g/dL Hematocrit 45.4 41.0-53.0 % Mean Corpuscular Volume 84.5 80.0-100.0 fL Mean Corpuscular Hemoglobin 29.6 28.0-32.0 pg Mean Corpuscular Hemoglobin Concent 35.1 32.0-36.0 g/dL Red Cell Distribution Width 13.5 11.8-14.3 % Platelet Count 170 140-450 10^3/uL Mean Platelet Volume 7.5 6.9-10.8 fL Neutrophils (%) (Auto) 81.8 H 37.0-80.0 % Lymphocytes (%) (Auto) 11.4 10.0-50.0 % Monocytes (%) (Auto) 5.4 0.0-12.0 % Eosinophils (%) (Auto) 0.9 0.0-7.0 % Basophils (%) (Auto) 0.5 0.0-2.0 % Neutrophils # (Auto) 7.9 1.6-8.6 10 ^3/uL Lymphocytes # (Auto) 1.1 0.4-5.4 10 ^3/uL Monocytes # (Auto) 0.5 0-1.3 10 ^3/uL Eosinophils # (Auto) 0.1 0-0.8 10 ^3/uL Basophils # (Auto) 0 0-0.2 10 ^3/uL Nucleated Red Blood Cells 0.0 % Sodium Level 139 136-145 mmol/L Potassium Level 4.7 3.5-5.1 mmol/L Chloride Level 105 98-107 mmol/L Carbon Dioxide Level 27 20-31 mmol/L Anion Gap 7 5-15 Blood Urea Nitrogen 14 9-23 mg/dL Creatinine 1.11 0.700-1.30 mg/dL Glomerular Filtration Rate Calc 71 >90 mL/min BUN/Creatinine Ratio 12.6 10.0-20.0 Serum Glucose 129 H 74-106 mg/dL Calcium Level 9.4 8.7-10.4 mg/dL POC Glucose 104 70-106 mg/dl Urine Color Yellow Yellow Urine Clarity Clear Clear Urine pH 5.5 5.0-9.0 Urine Specific [place] 1.025 1.001-1.035 Urine Protein 1+ H Negative Urine Ketones Negative Negative Urine Blood Negative Negative /uL Urine Nitrite Negative Negative Urine Bilirubin Negative Negative Urine Urobilinogen Normal Negative mg/dL Urine Leukocyte Esterase Negative Negative /uL Urine RBC 5 0 - 3 /hpf Urine Microscopic WBC 1 0-3 /HPF Urine Squamous Epithelial Cells Few <5 /hpf Urine Calcium Oxalate Crystals Few None Seen Urine Bacteria Few H None Seen /hpf Urine Mucus Few None Seen Urine Glucose Normal Normal mg/dL Assessment Recurrent passing out Syncope secondary to bradycardia ? Seizure Plan/Recommendation Monitoring Supportive treatment Telemetry EEG Keppra 750 mg b.i.d. Ativan for seizure breakthrough Cardiology consultation Syncope precautions discussed Follow up with his neurologist on discharge More recommendation per clinical course Progress: Poor Time spent was more than 55 minutes This medical document was created using an electronic medical record system with [employer] dictation system. Although this document has been carefully reviewed, there may still be some phonetic and typographical errors. These areas are purely typographical due to imperfections of the software programs, and do not reflect any compromise in the patient's medical care. Plan discussed with: Patient, Spouse, Other VAL HIGHTOWER MD May 16, 2025 23:14
[2025-05-17] VITALS (7 sets, daily range): BP systolic 119–146; BP diastolic 62–78; PULSE 50–54; RESP 16–18; TEMP 97.6–98.2; O2SAT 93–96
[2025-05-17] MEDS: levETIRAcetam 500 MG TAB PO ONE
[2025-05-17] MEDS ORDERED: LEVE750T3 PO (01:19)
[2025-05-17 08:47] LABS: Alanine Aminotransferase 20 U/L (7-40); Albumin 4.4 g/dL (3.2-4.8); Alkaline Phosphatase 90 U/L (46-116); Anion Gap 10 (5-15); BUN/Creatinine Ratio 13.2 (10.0-20.0); Bilirubin, Total 0.8 mg/dL (0.2-1.0); Blood Urea Nitrogen 14 mg/dL (9-23); Calcium 9.5 mg/dL (8.7-10.4); Carbon Dioxide 23 mmol/L (20-31); Glucose 101 mg/dL (74-106); Potassium 4.2 mmol/L (3.5-5.1); Sodium 140 mmol/L (136-145); Total Protein 7.1 g/dL (5.7-8.2)
[2025-05-17 08:49] LABS: Chloride 107 mmol/L (98-107)
--- NOTE | 2025-05-17 09:34 | DVHINCON2 ---
Date Seen: May 17, 2025 Referring Physician Alta Reason for Consultation Bradycardia, Syncope History of Present Illness 74-year-old male with PMH for seizures, diabetes, recurrent syncopal episodes, sinus bradycardia, CAD s/p stent x2 to LCX 03/2018 and RCA x1 MAZIN 12/2020,presents to the hospital with syncopal episode. 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 Denies any palpitations, chest pain, shortness of breath. Patient states this episode feels different from previous episodes in the past. Patient has had multiple cardiac workups with event monitoring echocardiogram with no significant abnormalities no high degree AV blocks, p auses. Troponin negative. CT head negative for acute intracranial findings. Past Medical History As stated above. Past Surgical History As stated above. Family History: Cardiovascular disease G8 MOTHER G8 FATHER Cerebrovascular accident (CVA) G8 MOTHER, Onset:60 years & older FH: kidney failure G8 MOTHER Social History Denies alcohol tobacco or illicit drug use. Allergies: Coded Allergies: Iodine (Verified Allergy, Intermediate, HIVES, 01/01/21) Home Meds Reported Medications Levetiracetam (Levetiracetam) 750 Mg Tab, 1 TAB PO BID 05/17/25 Tamsulosin Hcl (Tamsulosin Hcl) 0.4 Mg Cap, 1 CAP PO HS for 90 Days, #90 09/24/24 Atorvastatin Calcium (Lipitor) 10 Mg Tab, 1 TAB PO HS for 90 Days, #90 09/24/24 Izxmgygeqjc-Kqgtcnbciatt-Jlazv (Trelegy Ellipta 200-62.5-25 Mcg/INH) 1 Aer Aer, 1 PUFF IN DAILY for 30 Days, #60 09/24/24 Hydrocodone-Acetaminophen (Hydrocodone/Acetaminophen 5-325 mg) 1 Tab Tab, 1 TAB PO DAILY PRN for 30 Days, #30 09/24/24 Clopidogrel Bisulfate (Plavix) 75 Mg Tab, 1 TAB PO QAM for CAD 01/01/21 Aspirin (Aspirin) 81 Mg Tab, 1 TAB PO QAM for CAD 01/01/21 Tizanidine Hydrochloride (Zanaflex) 4 Mg Cap, 1 CAP PO DAILY PRN for FOR MUSCLE SPASM 01/17/18 Nitroglycerin (NTROSTAT SUBLINGUAL) 0.4 Mg Sl, 1 TAB SL PRN PRN for FOR CHEST PAIN *MAY REPEAT EVERY 5 MINUTES X 3 TOTAL IF NO RELIEF, INITIATE ANALGESIC THERAPY. NOTIFY PHYSICIAN *Do not crush. 01/17/18 Ranitidine Hcl (Ranitidine Hcl) 150 Mg Cap, 1 CAP PO BID PRN for GERD 01/17/18 Current Medications Current Medications Medications (Trade) Dose Ordered Sig/Fidelia Route PRN Reason Start Time Stop Time Status Last Admin Nitroglycerin (Ntrostat Sublingual) 0.4 mg Q5MINP PRN SL FOR CHEST PAIN 05/16/25 18:30 Morphine Sulfate 2 mg Q30M PRN IV FOR CHEST PAIN 05/16/25 18:30 Lorazepam (Ativan Inj) 1 mg Q2HP PRN IV SEIZURES 05/16/25 18:30 Levetiracetam (Keppra Tablet) 750 mg BID PO 05/17/25 10:00 Review of Systems Constitutional: No: Fever, Chills, Sweats, Weakness, Malaise, Other Eyes: No: Pain, Vision change, Conjunctivae inflammation, Eyelid inflammation, Other, Redness ENT: No: Ear pain, Ear discharge, Nose pain, Nose discharge, Nose congestion, Mouth pain, Mouth swelling, Throat pain, Throat swelling, Other Respiratory: No: Cough, Dry, Shortness of breath, SOB with exertion, Wheezing, Hemoptysis, Pleuritic Pain, Sputum, Wheezing, Other Cardiovascular: ; No: Chest Pain Palpitations, Orthopnea, Paroxysmal Noc. Dy spnea, Edema, Lt Headedness, Other Gastrointestinal: No: Nausea, Vomiting, Abdominal Pain, Diarrhea, Constipation, Melena, Hematochezia, Other Genitourinary: No Dysuria, No Frequency, No Incontinence, No Hematuria, No Retention, No Other Musculoskeletal: neck pain; No: other, shoulder pain, arm pain, back pain, hand pain, leg pain, foot pain Skin: No: Rash, Lesions, Jaundice, Bruising, Other Neurological: Other (Dizziness, headache.); No: Weakness, Numbness, Incoordination, Change in speech, Confusion, Seizures Vital Signs Vital Signs Date Time Temp Pulse Resp B/P (MAP) Pulse Ox O2 Delivery O2 Flow Rate FiO2 05/17/25 08:32 97.6 52 16 135/71 (92) 96 97.6 05/17/25 00:53 Room Air* 0 21 Physical Exam General appearance: Patient is well-developed, well-nourished, in no acute distress. HEENT: Exam shows: Normocephalic, atraumatic, PERRLA, EOMI Neck: Supple, no bruits Chest: Equal chest excursion bilaterally. Breath sounds normal-no rales or wheezes. Heart: Rhythm: Regular rate; no murmur or gallop Abdomen: Exam shows: Soft, nontender, nondistended Musculoskeletal: No clubbing, no cyanosis, no lower extremity edema Dermatology: Skin warm, moist. Neurological: Exam shows: Alert and oriented x4, normal speech Available prior records, labs, EKG, rhythm strips reviewed and interpreted Labs/Diagnostic Data Labs Test 05/17/25 05:35 05/16/25 15:24 05/16/25 13:19 05/16/25 05:29 Range/Units Sodium Level 140 136-145 mmol/L Potassium Level 4.2 3.5-5.1 mmol/L Chloride Level 107 98-107 mmol/L Carbon Dioxide Level 23 20-31 mmol/L Anion Gap 10 5-15 Blood Urea Nitrogen 14 9-23 mg/dL Creatinine 1.06 0.700-1.30 mg/dL Glomerular Filtration Rate Calc 75 >90 mL/min BUN/Creatinine Ratio 13.2 10.0-20.0 Serum Glucose 101 74-106 mg/dL Calcium Level 9.5 8.7-10.4 mg/dL Total Bilirubin 0.8 0.2-1.0 mg/dL Aspartate Amino Transferase (AST) 25 13-40 U/L Alanine Aminotransferase (ALT) 20 7-40 U/L Alkaline Phosphatase 90 46-116 U/L Troponin I High Sensitivity 40 </=54 ng/L Total Protein 7.1 5.7-8.2 g/dL Albumin 4.4 3.2-4.8 g/dL White Blood Count 9.7 4.4-10.8 10^3/uL Red Blood Count 5.38 4.5-5.90 10^6/uL Hemoglobin 15.9 13.5-17.5 g/dL Hematocrit 45.4 41.0-53.0 % Mean Corpuscular Volume 84.5 80.0-100.0 fL Mean Corpuscular Hemoglobin 29.6 28.0-32.0 pg Mean Corpuscular Hemoglobin Concent 35.1 32.0-36.0 g/dL Red Cell Distribution Width 13.5 11.8-14.3 % Platelet Count 170 140-450 10^3/uL Mean Platelet Volume 7.5 6.9-10.8 fL Neutrophils (%) (Auto) 81.8 H 37.0-80.0 % Lymphocytes (%) (Auto) 11.4 10.0-50.0 % Monocytes (%) (Auto) 5.4 0.0-12.0 % Eosinophils (%) (Auto) 0.9 0.0-7.0 % Basophils (%) (Auto) 0.5 0.0-2.0 % Neutrophils # (Auto) 7.9 1.6-8.6 10 ^3/uL Lymphocytes # (Auto) 1.1 0.4-5.4 10 ^3/uL Monocytes # (Auto) 0.5 0-1.3 10 ^3/uL Eosinophils # (Auto) 0.1 0-0.8 10 ^3/uL Basophils # (Auto) 0 0-0.2 10 ^3/uL Nucleated Red Blood Cells 0.0 % POC Glucose 104 70-106 mg/dl Urine Color Yellow Yellow Urine Clarity Clear Clear Urine pH 5.5 5.0-9.0 Urine Specific [place] 1.025 1.001-1.035 Urine Protein 1+ H Negative Urine Ketones Negative Negative Urine Blood Negative Negative /uL Urine Nitrite Negative Negative Urine Bilirubin Negative Negative Urine Urobilinogen Normal Negative mg/dL Urine Leukocyte Esterase Negative Negative /uL Urine RBC 5 0 - 3 /hpf Urine Microscopic WBC 1 0-3 /HPF Urine Squamous Epithelial Cells Few <5 /hpf Urine Calcium Oxalate Crystals Few None Seen Urine Bacteria Few H None Seen /hpf Urine Mucus Few None Seen Urine Glucose Normal Normal mg/dL Assessment * Sinus bradycardia - Avoid AV zoe blocking meds. No high degree AV blocks, pauses or significant arrhythmias on tele review. Endorsees recent cardiology follow up with month long event monilating with no significnat events noted. Recent TSH normal. Recent ECHO earlier this year with normal EF no significant valvular abnormalities. Likely Vasovagal event from change in position. * Syncope - Likely vagovagal episode. CT head negative. Neurology on board. * Hx Seizures - Management per neurology. * CAD S/P stent in past - Continue aspirin plavix and statin. Troponin negative no active cardiac symptoms. Case Discussed with Dr Evans. Recommend outpatient follow up for loop recorder implantation for long-term monitoring given no events noted on 1 month Holter monitor. Also Recommend patient to have cortisol levels, 24hour urine test, cosyntropin stimulation test to rule out adrenal involvement on outpatient basis. Critical care, time spent: 38 minutes This medical document was created using an electronic medical record system with voice recognition software and computerized dictation system. Although this document has been carefully reviewed, there might still be some phonetic and typographical errors. Occasional wrong-word or ``sound-alike substitutions may have occurred due to the inherent limitations of voice recognition software. These areas are purely typographical due to imperfections of the software programs and do not reflect any compromise in the patient's medical care. Please read the chart carefully and recognize, using context, where these substitutions have occurred. Thank you for allowing me to participate in the management of this patient. The treatment plan was discussed with and agreed upon by patient/family including requesting consultants and ordering of imaging/procedures. Plan discussed with: Patient NYHA Physical activity limitations: NA Date of Service: May 17, 2025 Billing Provider: KITTY DALE Cardiology Common Codes: [id number] INP/OBS CARE (High), [id number] CARE 30-74 MIN KITTY DALE May 17, 2025 09:34
[2025-05-17] MEDS: levETIRAcetam 500 MG TAB PO SCH (10:12)
--- NOTE | 2025-05-17 16:29 | DVHHP2 ---
History of Present Illness Reason for Visit: Breakthrough seizures. History of Present Illness 74-year-old male with known history of seizure disorder, currently on Keppra 750 mg p.o. twice a day, diabetes mellitus type 2, hypertension, COPD, CAD status post PCI to left circumflex and RCA in the past currently on aspirin Plavix and statin presented to the hospital with questionable seizure-like episode as well as passing out spell. Mentioned the patient was recommended to be admitted, initial head CT scan shows no evidence of any acute pathology. Patient denies any urinary incontinence or tongue biting during this. Cardiovascular: CAD, HTN, hyperipidemia Pulmonary: COPD Past Surgical History: None, Other (CAD status post PCI with 2 stents.) Smoke: No ALCOHOL: none Review of Systems Review of Systems Twelve review of system were negative except mentioned above. Allergies: Coded Allergies: Iodine (Verified Allergy, Intermediate, HIVES, 01/01/21) Medications Current Medications Medications Dose Ordered Sig/Fidelia Route Start Time Stop Time Status Last Admin Dose Admin Nitroglycerin 0.4 mg Q5MINP PRN SL 05/16/25 18:30 Morphine Sulfate 2 mg Q30M PRN IV 05/16/25 18:30 Lorazepam 1 mg Q2HP PRN IV 05/16/25 18:30 Levetiracetam 750 mg BID PO 05/17/25 10:00 05/17/25 10:12 750 MG Exam Vital Signs Vital Signs Date Time Temp Pulse Resp B/P (MAP) Pulse Ox O2 Delivery O2 Flow Rate FiO2 05/17/25 13:16 98.0 52 17 146/78 (100) 96 98.0 05/17/25 00:53 Room Air* 0 21 Exam HEENT pupils are reactive Neck is supple CV is S1-S2 regular rate and rhythm History of likely next GI positive bowel sound 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 Labs/Xrays Labs Test 05/17/25 11:44 05/17/25 05:35 05/16/25 15:24 05/16/25 13:19 Range/Units Troponin I High Sensitivity 30 </=54 ng/L Sodium Level 140 136-145 mmol/L Potassium Level 4.2 3.5-5.1 mmol/L Chloride Level 107 98-107 mmol/L Carbon Dioxide Level 23 20-31 mmol/L Anion Gap 10 5-15 Blood Urea Nitrogen 14 9-23 mg/dL Creatinine 1.06 0.700-1.30 mg/dL Glomerular Filtration Rate Calc 75 >90 mL/min BUN/Creatinine Ratio 13.2 10.0-20.0 Serum Glucose 101 74-106 mg/dL Calcium Level 9.5 8.7-10.4 mg/dL Total Bilirubin 0.8 0.2-1.0 mg/dL Aspartate Amino Transferase (AST) 25 13-40 U/L Alanine Aminotransferase (ALT) 20 7-40 U/L Alkaline Phosphatase 90 46-116 U/L Total Protein 7.1 5.7-8.2 g/dL Albumin 4.4 3.2-4.8 g/dL White Blood Count 9.7 4.4-10.8 10^3/uL Red Blood Count 5.38 4.5-5.90 10^6/uL Hemoglobin 15.9 13.5-17.5 g/dL Hematocrit 45.4 41.0-53.0 % Mean Corpuscular Volume 84.5 80.0-100.0 fL Mean Corpuscular Hemoglobin 29.6 28.0-32.0 pg Mean Corpuscular Hemoglobin Concent 35.1 32.0-36.0 g/dL Red Cell Distribution Width 13.5 11.8-14.3 % Platelet Count 170 140-450 10^3/uL Mean Platelet Volume 7.5 6.9-10.8 fL Neutrophils (%) (Auto) 81.8 H 37.0-80.0 % Lymphocytes (%) (Auto) 11.4 10.0-50.0 % Monocytes (%) (Auto) 5.4 0.0-12.0 % Eosinophils (%) (Auto) 0.9 0.0-7.0 % Basophils (%) (Auto) 0.5 0.0-2.0 % Neutrophils # (Auto) 7.9 1.6-8.6 10 ^3/uL Lymphocytes # (Auto) 1.1 0.4-5.4 10 ^3/uL Monocytes # (Auto) 0.5 0-1.3 10 ^3/uL Eosinophils # (Auto) 0.1 0-0.8 10 ^3/uL Basophils # (Auto) 0 0-0.2 10 ^3/uL Nucleated Red Blood Cells 0.0 % POC Glucose 104 70-106 mg/dl Test 05/16/25 05:29 Range/Units Urine Color Yellow Yellow Urine Clarity Clear Clear Urine pH 5.5 5.0-9.0 Urine Specific [place] 1.025 1.001-1.035 Urine Protein 1+ H Negative Urine Ketones Negative Negative Urine Blood Negative Negative /uL Urine Nitrite Negative Negative Urine Bilirubin Negative Negative Urine Urobilinogen Normal Negative mg/dL Urine Leukocyte Esterase Negative Negative /uL Urine RBC 5 0 - 3 /hpf Urine Microscopic WBC 1 0-3 /HPF Urine Squamous Epithelial Cells Few <5 /hpf Urine Calcium Oxalate Crystals Few None Seen Urine Bacteria Few H None Seen /hpf Urine Mucus Few None Seen Urine Glucose Normal Normal mg/dL SEPSIS Sepsis Screen Date sepsis recognized/suspect: May 16, 2025 Time Sepsis recognized/suspect: 1251 Recent Procedure: No On Antibiotic Therapy: No Respiratory Rate >20: No Heart Rate >90: No Temp<36 C (96.8 F) or >38.3 C: No SBP <90 or MAP <65 mmHG: No New Acute Mental Status Change: No Is the patient on CPAP, BIPAP,: No Vital Signs Date Time Temp Pulse Resp B/P (MAP) Pulse Ox O2 Delivery O2 Flow Rate FiO2 05/17/25 13:16 98.0 52 17 146/78 (100) 96 98.0 05/17/25 08:32 97.6 52 16 135/71 (92) 96 97.6 Medications Medications Dose Ordered Sig/Fidelia Route Start Time Stop Time Status Last Admin Dose Admin Levetiracetam 750 mg BID PO 05/17/25 10:00 05/17/25 10:12 750 MG Assessment/Plan Assessment/Plan 74-year-old male with known history of seizure disorder, diabetes mellitus type 2, hypertension, known CAD status post PCI, COPD who initially with the hospital with questionable seizure 1. Breakthrough seizure 2. Epilepsy currently on Keppra 750 mg p.o. twice a day next 3. Syncope 4. Bradycardia symptomatically not on AV zoe agents next 5. CAD status post PCI with 2 stents -admit to telemetry, obtain Neurology consultation, resume Keppra, Ativan p.r.n. seizures. 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
--- NOTE | 2025-05-17 16:37 | DVHDS2 ---
Discharge Summary Date of Admission May 16, 2025 at 18:28 Date of Discharge: May 17, 2025 Labs/Diagnostic Data: Laboratory Results Test 05/17/25 11:44 05/17/25 05:35 05/16/25 15:24 05/16/25 13:19 Troponin I High Sensitivity 30 ng/L (</=54) Sodium Level 140 mmol/L (136-145) Potassium Level 4.2 mmol/L (3.5-5.1) Chloride Level 107 mmol/L (98-107) Carbon Dioxide Level 23 mmol/L (20-31) Anion Gap 10 (5-15) Blood Urea Nitrogen 14 mg/dL (9-23) Creatinine 1.06 mg/dL (0.700-1.30) Glomerular Filtration Rate Calc 75 mL/min (>90) BUN/Creatinine Ratio 13.2 (10.0-20.0) Serum Glucose 101 mg/dL (74-106) Calcium Level 9.5 mg/dL (8.7-10.4) Total Bilirubin 0.8 mg/dL (0.2-1.0) Aspartate Amino Transferase (AST) 25 U/L (13-40) Alanine Aminotransferase (ALT) 20 U/L (7-40) Alkaline Phosphatase 90 U/L (46-116) Total Protein 7.1 g/dL (5.7-8.2) Albumin 4.4 g/dL (3.2-4.8) White Blood Count 9.7 10^3/uL (4.4-10.8) Red Blood Count 5.38 10^6/uL (4.5-5.90) Hemoglobin 15.9 g/dL (13.5-17.5) Hematocrit 45.4 % (41.0-53.0) Mean Corpuscular Volume 84.5 fL (80.0-100.0) Mean Corpuscular Hemoglobin 29.6 pg (28.0-32.0) Mean Corpuscular Hemoglobin Concent 35.1 g/dL (32.0-36.0) Red Cell Distribution Width 13.5 % (11.8-14.3) Platelet Count 170 10^3/uL (140-450) Mean Platelet Volume 7.5 fL (6.9-10.8) Neutrophils (%) (Auto) 81.8 % (37.0-80.0) Lymphocytes (%) (Auto) 11.4 % (10.0-50.0) Monocytes (%) (Auto) 5.4 % (0.0-12.0) Eosinophils (%) (Auto) 0.9 % (0.0-7.0) Basophils (%) (Auto) 0.5 % (0.0-2.0) Neutrophils # (Auto) 7.9 10 ^3/uL (1.6-8.6) Lymphocytes # (Auto) 1.1 10 ^3/uL (0.4-5.4) Monocytes # (Auto) 0.5 10 ^3/uL (0-1.3) Eosinophils # (Auto) 0.1 10 ^3/uL (0-0.8) Basophils # (Auto) 0 10 ^3/uL (0-0.2) Nucleated Red Blood Cells 0.0 % POC Glucose 104 mg/dl (70-106) Test 05/16/25 05:29 Urine Color Yellow (Yellow) Urine Clarity Clear (Clear) Urine pH 5.5 (5.0-9.0) Urine Specific [place] 1.025 (1.001-1.035) Urine Protein 1+ (Negative) Urine Ketones Negative (Negative) Urine Blood Negative /uL (Negative) Urine Nitrite Negative (Negative) Urine Bilirubin Negative (Negative) Urine Urobilinogen Normal mg/dL (Negative) Urine Leukocyte Esterase Negative /uL (Negative) Urine RBC 5 /hpf (0 - 3) Urine Microscopic WBC 1 /HPF (0-3) Urine Squamous Epithelial Cells Few /hpf (<5) Urine Calcium Oxalate Crystals Few (None Seen) Urine Bacteria Few /hpf (None Seen) Urine Mucus Few (None Seen) Urine Glucose Normal mg/dL (Normal) Other Laboratory Tests 05/17/25 05:35 05/16/25 15:24 Brief Hx & Hospital Course: 74-year-old male with known history of seizure disorder, diabetes mellitus type 2, hypertension, known CAD status post PCI, COPD who initially with the hospital with questionable seizure . Patient was eventually admitted. Neurology was consulted. Patient was also found to have bradycardia but currently not on AV zoe agents. Patient does have known history CAD status post PCI. Neurology evaluated the patient and recommended to stay on the same dose of Keppra. Patient and patient's at bedside they understand verbalized understanding and agreeable to plan. No driving while on seizure medications. Condition at Discharge: Stable Final Diagnosis/Problems List 74-year-old male with known history of seizure disorder, diabetes mellitus type 2, hypertension, known CAD status post PCI, COPD who initially with the hospital with questionable seizure 1. Breakthrough seizure 2. Epilepsy currently on Keppra 750 mg p.o. twice a day next 3. Syncope 4. Bradycardia symptomatically not on AV zoe agents next 5. CAD status post PCI with 2 stents -admit to telemetry, obtain Neurology consultation, resume Keppra, Ativan p.r.n. seizures. Discharge Disposition: Home SNF Discharge Will this Physician continue t: No Discharge Instruct/Medications Diet: Cardiac 2g Na,low cholest Activity: See Comment Activity comment: No driving while on seizure medications. Follow Up/Referral: Please follow up with PCP in 1 week Follow up with your own neurologist in 1-2 weeks. Medications: Resume home medication including Keppra at current dose. Continued Medications: Aspirin (Aspirin) 81 Mg Tab 1 TAB PO QAM for CAD Atorvastatin Calcium (Lipitor) 10 Mg Tab 1 TAB PO HS for 90 Days, #90 Clopidogrel Bisulfate (Plavix) 75 Mg Tab 1 TAB PO QAM for CAD Rejyskujkmn-Xxthxdbfhpdl-Dfjsb (Trelegy Ellipta 200-62.5-25 Mcg/INH) 1 Aer Aer 1 PUFF IN DAILY for 30 Days, #60 Hydrocodone-Acetaminophen (Hydrocodone/Acetaminophen 5-325 mg) 1 Tab Tab 1 TAB PO DAILY PRN for 30 Days, #30 Levetiracetam (Levetiracetam) 750 Mg Tab 1 TAB PO BID Nitroglycerin (Ntrostat Sublingual) 0.4 Mg Sl 1 TAB SL PRN PRN for FOR CHEST PAIN *MAY REPEAT EVERY 5 MINUTES X 3 TOTAL IF NO RELIEF, INITIATE ANALGESIC THERAPY. NOTIFY PHYSICIAN *Do not crush. Ranitidine Hcl (Ranitidine Hcl) 150 Mg Cap 1 CAP PO BID PRN for GERD Tamsulosin Hcl (Tamsulosin Hcl) 0.4 Mg Cap 1 CAP PO HS for 90 Days, #90 Tizanidine Hydrochloride (Zanaflex) 4 Mg Cap 1 CAP PO DAILY PRN for FOR MUSCLE SPASM Scheduled Aspirin (Aspirin), 1 TAB PO QAM, (Reported) Atorvastatin Calcium (Lipitor), 1 TAB PO HS, (Reported) Clopidogrel Bisulfate (Plavix), 1 TAB PO QAM, (Reported) Tkujkflcugi-Hegqljvkbstw-Krhne (Trelegy Ellipta 200-62.5-25 Mcg/INH), 1 PUFF IN DAILY, (Reported) Hydrocodone-Acetaminophen (Hydrocodone/Acetaminophen 5-325 mg), 1 TAB PO DAILY PRN, (Reported) Levetiracetam (Levetiracetam), 1 TAB PO BID, (Reported) Tamsulosin Hcl (Tamsulosin Hcl), 1 CAP PO HS, (Reported) Scheduled PRN Nitroglycerin (Ntrostat Sublingual), 1 TAB SL PRN PRN for FOR CHEST PAIN, (Reported) Ranitidine Hcl (Ranitidine Hcl), 1 CAP PO BID PRN for GERD, (Reported) Tizanidine Hydrochloride (Zanaflex), 1 CAP PO DAILY PRN for FOR MUSCLE SPASM, (Reported) Discharge Statement: "Patient was advised to return to the ER or call 911 if any headaches, dizziness, shortness of breath, chest pain, abdominal pain, bleeding, fevers, or worsening of medical condition. Patient was counseled about treatment plan, medications, possible side effects, patientverbalized understanding. All questions were answered to the best of my ability. This discharge took greater then 30 minutes in planning, reviewing documentation, counseling the patient, and discussing with other team members." ASSESSMENT ASSESSMENT Assessment 74-year-old male with known history of seizure disorder, diabetes mellitus type 2, hypertension, known CAD status post PCI, COPD who initially with the hospital with questionable seizure 1. Breakthrough seizure 2. Epilepsy currently on Keppra 750 mg p.o. twice a day next 3. Syncope 4. Bradycardia symptomatically not on AV zoe agents next 5. CAD status post PCI with 2 stents -admit to telemetry, obtain Neurology consultation, resume Keppra, Ativan p.r.n. seizures. Date of Service: May 17, 2025 Billing Provider: ERNEE IRVIN MD Common Visit Codes: NOT BILLABLE RENEE IRVIN MD May 17, 2025 16:37
--- NOTE | 2025-05-18 20:29 | DVHEEG2 ---
Neurology EEG Procedural Note Procedural Note EXAM DATE: 05/17/2025 REFERRING DOCTOR: Dr. Hightower TECHNIQUE: Eighteen channels of EEG, 2 channels of EOG, and 1 channel of EKG were recorded using the International 10/20 system. CLINICAL DATA: The patient was referred for an EEG evaluation for the evidence of seizure disorder. MEDICATIONS: See the chart BACKGROUND ACTIVITY: While the patient was awake, the background activity consisted of well regulated 8-9 Hz rhythmic waveforms, symmetrically distributed over both posterior quadrants and was reactive to eye opening. ACTIVATION: Hyperventilation: Not seen Photic Stimulation: No photic convulsive response Sleep: Noticed IMPRESSION: This is a normal EEG. No focal, lateralized, or epileptiform features are noted. If clinically indicated to rule out a seizure disorder, recommend repeat EEG with sleep deprivation. The EKG channel showed a irregular heart rate in 40s and 50s per minute. [place] [address] VAL HIGHTOWER MD May 18, 2025 20:29
== END 2025-05-17 19:11 | disposition home or self-care (01) | DRG 101 ==
LOC: EDBD 12:44 → ER 12:44 → OVERFLOW 18:28 → TELE-WESTW 23:58
PROVIDERS: ADMIT Internal Medicine; ATTEND Internal Medicine
DX: G40.909 Epilepsy, unspecified, not intractable, without status epilepticus (principal); E11.9 Type 2 diabetes mellitus without complications; I10 Essential (primary) hypertension; J44.9 Chronic obstructive pulmonary disease, unspecified; E78.5 Hyperlipidemia, unspecified; I25.10 Atherosclerotic heart disease of native coronary artery without angina pectoris; F17.210 Nicotine dependence, cigarettes, uncomplicated; R00.1 Bradycardia, unspecified; R55 Syncope and collapse; Z95.5 Presence of coronary angioplasty implant and graft; Z82.49 Family history of ischemic heart disease and other diseases of the circulatory system; Z82.3 Family history of stroke; Z83.3 Family history of diabetes mellitus; Z79.899 Other long term (current) drug therapy; Z79.02 Long term (current) use of antithrombotics/antiplatelets; Z79.82 Long term (current) use of aspirin; Z91.041 Radiographic dye allergy status
CPT/HCPCS: 36415; 70450; 80048; 80053; 81001; 82962; 84484; 85025; 95819; 97163; 99291; G0378